=== PATIENT | male | born 1935 | race Caucasian/White ===

== ENCOUNTER 2019-03-28 16:02 | Emergency (ER) | payer OTHER ==
[~2019-03-28] VITALS: Ht 180.3 cm; Wt 97.5 kg
[~2019-03-28 16:02] MED LIST: ALBU90OI; AMLO10 PO; ASPI325 PO; ASPI81CH PO; ATEN25; ATOR40TA PO; CEPH500 PO; CLOP75 PO; COMBIVENT RESPIM4 GM; Celexa40 MG PO; HYDACE5 PO; LAMZIDT; LORA10; LOSA25; LOSA50 PO; Minipress1 MG PO; NIFE60ER; OMEP20ER; OMEPRAZOLE20 MG PO; QUET100 PO; SIMV40
[2019-03-28] MEDS ORDERED: ALBU90OI INH (16:22)
[2019-03-28] MEDS ORDERED: VITAMIN D32000 UNI1 PO (16:23)
[2019-03-28] MEDS ORDERED: ASPI81CH PO (16:23)
[2019-03-28] MEDS ORDERED: LEVSOD50 PO (16:25)
[2019-03-28] MEDS ORDERED: STRIVERDI RESPIM4 GM INH (16:27)
[2019-03-28] MEDS ORDERED: POTA10T PO (16:28)
[2019-03-28] MEDS ORDERED: Percocet 5-3251 EACH PO (18:44)
== END 2019-03-28 19:00 | disposition home or self-care (01) ==
LOC: ER 16:02
DX: S42.215A Unspecified nondisplaced fracture of surgical neck of left humerus, initial encounter for closed fracture (principal); S00.12XA Contusion of left eyelid and periocular area, initial encounter; S00.81XA Abrasion of other part of head, initial encounter; S80.211A Abrasion, right knee, initial encounter; I10 Essential (primary) hypertension; E78.00 Pure hypercholesterolemia, unspecified; K21.9 Gastro-esophageal reflux disease without esophagitis; Z87.891 Personal history of nicotine dependence; Z86.73 Personal history of transient ischemic attack (TIA), and cerebral infarction without residual deficits; Z88.8 Allergy status to other drugs, medicaments and biological substances; Z79.899 Other long term (current) drug therapy; Z79.82 Long term (current) use of aspirin; Z79.02 Long term (current) use of antithrombotics/antiplatelets; W18.39XA Other fall on same level, initial encounter
CPT/HCPCS: 70450; 73030; 90471; 90714; 93005; 93010; 99284-25

== ENCOUNTER 2019-04-01 10:44 | Emergency (ER) | payer OTHER ==
[~2019-04-01] VITALS: Ht 182.9 cm; Wt 90.7 kg
[~2019-04-01 10:44] MED LIST changes: +ALBU90OI INH; +LEVSOD50 PO; +POTA10T PO; +Percocet 5-3251 EACH PO; +STRIVERDI RESPIM4 GM INH; +VITAMIN D32000 UNI1 PO
[2019-04-01 11:21] LABS: BASOPHILS ABSOLUTE AUTO 0.05 K/mm3 (0.00-0.23); BASOPHILS PERCENT AUTO 1 % (0-2); EOSINOPHILS ABSOLUTE AUTO 0.43 K/mm3 (0.00-0.68); EOSINOPHILS PERCENT AUTO 6 % (0-6); Hematocrit 26.3 % (37.0-53.0); Hemoglobin 8.7 g/dL (13.5-17.5); IMMATURE GRAN ABSOLUTE AUTO 0.01 K/mm3 (0.00-0.10); IMMATURE GRAN PERCENT AUTO 0 % (0-1); LYMPHOCYTES ABSOLUTE AUTO 1.79 K/mm3 (0.84-5.20); LYMPHOCYTES PERCENT AUTO 26 % (21-46); MONOCYTES ABSOLUTE AUTO 0.62 K/mm3 (0.16-1.47); MONOCYTES PERCENT AUTO 9 % (4-13); Mean Corpuscular HGB 30.5 pg (26.0-34.0); Mean Corpuscular HGB Conc 33.1 g/dL (31.5-36.5); Mean Corpuscular Volume 92 fL (80-100); Mean Platelet Volume 10.5 fL (9.1-12.4); NEUTROPHILS PERCENT AUTO 58 % (41-73); Platelet Count 215 K/mm3 (150-400); RDW Coefficient Variation 14.3 % (11.7-14.2); RDW Standard Deviation 47.9 fL (35.1-46.3); Red Blood Cell Count 2.85 M/mm3 (4.30-5.90)
[2019-04-01 11:44] LABS: Alanine Aminotransfer (ALT/SGP 17 U/L (12-78); Albumin, Blood 3.1 g/dL (3.4-5.0); Albumin/Globulin Ratio 0.9 (0.8-1.8); Alk Phos 78 U/L (50-136); Anion Gap 9 mmol/L (6-16); Aspartate Aminotrans (AST/SGOT 28 U/L (12-37); Bilirubin, Total 0.9 mg/dL (0.1-1.0); Blood Urea Nitrogen 30 mg/dL (8-24); Bun/Creatinine Ratio 25.2 (12.0-20.0); CO2, Blood 24 mmol/L (21-32); Calcium, Blood 8.6 mg/dL (8.5-10.1); Chloride, Blood 109 mmol/L (98-108); Creatinine, Blood 1.19 mg/dL (0.60-1.20); Globulin, Blood 3.6 g/dL (2.2-4.0); Glomerular Filtration Rate >60 (60-); Glucose, Blood 114 mg/dL (70-99); Potassium, Blood 3.3 mmol/L (3.5-5.5); Sodium, Blood 142 mmol/L (136-145); Total Protein, Blood 6.7 g/dL (6.4-8.2)
[2019-04-01] MEDS ORDERED: Voltaren100 GM TOP (14:51)
[2019-04-01] MEDS ORDERED: Percocet 7.5-31 EACH PO (14:51)
== END 2019-04-01 15:45 | disposition home or self-care (01) ==
LOC: ER 10:44
PROVIDERS: Emergency Medicine
DX: S42.342A Displaced spiral fracture of shaft of humerus, left arm, initial encounter for closed fracture (principal); S42.202A Unspecified fracture of upper end of left humerus, initial encounter for closed fracture; S00.12XA Contusion of left eyelid and periocular area, initial encounter; I10 Essential (primary) hypertension; E03.9 Hypothyroidism, unspecified; Z86.73 Personal history of transient ischemic attack (TIA), and cerebral infarction without residual deficits; Z87.891 Personal history of nicotine dependence; Z88.8 Allergy status to other drugs, medicaments and biological substances; Z79.899 Other long term (current) drug therapy; Z79.02 Long term (current) use of antithrombotics/antiplatelets; Z79.82 Long term (current) use of aspirin; W17.89XA Other fall from one level to another, initial encounter
CPT/HCPCS: 36415; 71046; 71250; 73630; 80053; 85025; 96374; 96375; 99284-25; J2405; J3010

== ENCOUNTER 2019-04-04 00:47 | Inpatient (IN) | payer OTHER ==
[~2019-04-04] VITALS: Ht 180.3 cm; Wt 97.6 kg
[~2019-04-04 00:47] MED LIST changes: +Percocet 7.5-31 EACH PO; +Voltaren100 GM TOP
[2019-04-04 01:21] LABS: PCO2 Arterial 37.1 mmHg (35-45); pH Blood Arterial 7.45 (7.35-7.45)
[2019-04-04 01:42] LABS: BASOPHILS ABSOLUTE AUTO 0.04 K/mm3 (0.00-0.23); BASOPHILS PERCENT AUTO 1 % (0-2); EOSINOPHILS ABSOLUTE AUTO 0.22 K/mm3 (0.00-0.68); EOSINOPHILS PERCENT AUTO 3 % (0-6); Hematocrit 24.7 % (37.0-53.0); Hemoglobin 7.9 g/dL (13.5-17.5); IMMATURE GRAN ABSOLUTE AUTO 0.05 K/mm3 (0.00-0.10); IMMATURE GRAN PERCENT AUTO 1 % (0-1); LYMPHOCYTES ABSOLUTE AUTO 1.54 K/mm3 (0.84-5.20); LYMPHOCYTES PERCENT AUTO 21 % (21-46); MONOCYTES ABSOLUTE AUTO 0.58 K/mm3 (0.16-1.47); MONOCYTES PERCENT AUTO 8 % (4-13); Mean Corpuscular HGB 30.5 pg (26.0-34.0); Mean Corpuscular Volume 95 fL (80-100); Mean Platelet Volume 10.2 fL (9.1-12.4); NEUTROPHILS ABSOLUTE AUTO 5.03 K/mm3 (1.96-9.15); NEUTROPHILS PERCENT AUTO 68 % (41-73); Platelet Count 224 K/mm3 (150-400); RDW Coefficient Variation 15.4 % (11.7-14.2); RDW Standard Deviation 51.1 fL (35.1-46.3); Red Blood Cell Count 2.59 M/mm3 (4.30-5.90); White Blood Cell Count 7.46 K/mm3 (4.00-11.30)
[2019-04-04 01:48] LABS: Alanine Aminotransfer (ALT/SGP 18 U/L (12-78); Albumin, Blood 2.8 g/dL (3.4-5.0); Albumin/Globulin Ratio 0.9 (0.8-1.8); Alk Phos 63 U/L (50-136); Anion Gap 7 mmol/L (6-16); Aspartate Aminotrans (AST/SGOT 33 U/L (12-37); Bilirubin, Total 1.3 mg/dL (0.1-1.0); Blood Urea Nitrogen 28 mg/dL (8-24); Bun/Creatinine Ratio 23.3 (12.0-20.0); CO2, Blood 27 mmol/L (21-32); CPK Creatine Kinase 687 U/L (39-308); Calcium, Blood 8.3 mg/dL (8.5-10.1); Chloride, Blood 106 mmol/L (98-108); Globulin, Blood 3.1 g/dL (2.2-4.0); Glomerular Filtration Rate >60 (60-); Glucose, Blood 115 mg/dL (70-99); Potassium, Blood 3.4 mmol/L (3.5-5.5); Sodium, Blood 140 mmol/L (136-145); Total Protein, Blood 5.9 g/dL (6.4-8.2); Troponin I <0.015 ng/mL (0.000-0.040)
[2019-04-04 02:02] LABS: Creatine Kinase MB Index 0.4 (0.0-4.0)
--- NOTE | 2019-04-04 05:00 | NUR ---
PT ADMITTED TO ROOM ICU 12 FROM ED. REPORT RECEIVED. PT SLIDE TRANSFERRED TO BED. ARRIVES AT 0430. PT AWAKENS MOMENTARILY, AND THEN FALLS ASLEEP. ORDER OBTAINED FOR ADDITIONAL NARCAN. DID ADMINISTER 0.2 MG ONCE WHICH PT RESPONDED TO VERY WELL. PT AWAKENS AND IS ABLE TO ANSWER QUESTIONS APPROPRIATELY. PT'S SON AND PT'S GRANDSON IN ROOM. PT IN PROCESS OF POTASSIUM REPLACEMENT. WILL CONTINUE TO MONITOR PT.
--- NOTE | 2019-04-04 06:45 | NUR ---
PT HAS NOTED TO BE MORE SOMNULENT. ONCOMING RN TO BE TAKING OVER CARE SOON. WILL EVALUATE IF PT NEEDS TO RECEIVE ADDITONAL DOSE OF NARCAN. SON AND GRANDSON LEAVE FOR THE MORNING. OF NOTE: PT HAS BRUISING TO LEFT ARM THROUGHOUT FROM HIS FALL AT HOME. SLING REMAINS ON ARM. WILL MONITOR PT, AND WILL REPORT OFF TO ONCOMING RN.
[2019-04-04 09:28] LABS: BASOPHILS ABSOLUTE AUTO 0.04 K/mm3 (0.00-0.23); BASOPHILS PERCENT AUTO 1 % (0-2); EOSINOPHILS ABSOLUTE AUTO 0.13 K/mm3 (0.00-0.68); EOSINOPHILS PERCENT AUTO 2 % (0-6); Hematocrit 25.3 % (37.0-53.0); Hemoglobin 8.2 g/dL (13.5-17.5); IMMATURE GRAN ABSOLUTE AUTO 0.03 K/mm3 (0.00-0.10); IMMATURE GRAN PERCENT AUTO 0 % (0-1); LYMPHOCYTES ABSOLUTE AUTO 1.13 K/mm3 (0.84-5.20); LYMPHOCYTES PERCENT AUTO 14 % (21-46); MONOCYTES ABSOLUTE AUTO 0.66 K/mm3 (0.16-1.47); MONOCYTES PERCENT AUTO 8 % (4-13); Mean Corpuscular HGB 31.8 pg (26.0-34.0); Mean Corpuscular HGB Conc 32.4 g/dL (31.5-36.5); Mean Platelet Volume 9.6 fL (9.1-12.4); NEUTROPHILS ABSOLUTE AUTO 6.22 K/mm3 (1.96-9.15); NEUTROPHILS PERCENT AUTO 76 % (41-73); NRBC ABSOLUTE 0.02 K/mm3 (0.00-0.02); NRBC Auto 0.2 /100 WBC (0.0-0.2); Platelet Count 220 K/mm3 (150-400); RDW Coefficient Variation 15.6 % (11.7-14.2); RDW Standard Deviation 52.6 fL (35.1-46.3); Red Blood Cell Count 2.58 M/mm3 (4.30-5.90); White Blood Cell Count 8.21 K/mm3 (4.00-11.30)
[2019-04-04 09:41] LABS: Mean Corpuscular Volume 98 fL (80-100)
[2019-04-04 09:45] LABS: Albumin, Blood 2.7 g/dL (3.4-5.0); Albumin/Globulin Ratio 0.9 (0.8-1.8); Bilirubin, Total 1.3 mg/dL (0.1-1.0); Bun/Creatinine Ratio 24.6 (12.0-20.0); Calcium, Blood 8.2 mg/dL (8.5-10.1); Creatinine, Blood 1.26 mg/dL (0.60-1.20); Globulin, Blood 3.1 g/dL (2.2-4.0); Potassium, Blood 5.2 mmol/L (3.5-5.5); Total Protein, Blood 5.8 g/dL (6.4-8.2)
[2019-04-04 10:25] LABS: Adenovirus Not Detected (NOT DETECT)
[2019-04-04 10:26] LABS: Bordetella pertussis Not Detected (NOT DETECT); Chlamydophila pneumoniae Not Detected (NOT DETECT); Coronavirus 229E Not Detected (NOT DETECT); Coronavirus HKU1 Not Detected (NOT DETECT); Coronavirus NL63 Not Detected (NOT DETECT); Coronavirus OC43 Not Detected (NOT DETECT); Human Metapneumovirus Not Detected (NOT DETECT); Human Rhinovirus/Enterovirus Not Detected (NOT DETECT); Influenza A Not Detected (NOT DETECT); Influenza A/2009-H1 Not Detected (NOT DETECT); Influenza A/H1 Not Detected (NOT DETECT); Influenza A/H3 Not Detected (NOT DETECT); Influenza B Not Detected (NOT DETECT); Mycoplasma pneumoniae Not Detected (NOT DETECT); Parainfluenza Virus 1 Not Detected (NOT DETECT); Parainfluenza Virus 2 Not Detected (NOT DETECT); Parainfluenza Virus 3 Not Detected (NOT DETECT); Parainfluenza Virus 4 Not Detected (NOT DETECT); Respiratory Syncytial Virus Not Detected (NOT DETECT)
[2019-04-04 12:12] LABS: Source, Urine Clean Catch
[2019-04-04 12:17] LABS: Blood, Urine 5+ (Neg); Glucose Qualitative, Urine Neg (Neg); Ketones, Urine Neg (Neg); Leukocyte Esterase, Urine 1+ (Neg); Nitrite, Urine Neg (Neg); Protein, Urine 2+ (Neg); Specific Gravity, Urine 1.015 (1.003-1.022); Urobilinogen, Urine 1+ (Normal)
--- NOTE | 2019-04-04 12:20 | NUR ---
REASSESSMENT: PT HAS BEEN RESTING QUIETLY IN BED, SLEEPING UNLESS SPOKEN TO. HE IS ANSWERING MOST QUESTIONS APPROPRIATELY, ORIENTED TO WHERE HE IS AND HOW HE GOT INJURED. PT IS STILL DROWSY AND WAS FALLING ASLEEP WHEN NOT SPOKEN TOO SO ONE DOSE OF NARCAN GIVEN PER ORDERS BEFORE PT'S MEDICATIONS TO HELP HIM FULLY AWAKEN AND BE ABLE TO TAKE THE PILLS SAFELY. WITH THE NARCAN PT WAS MORE ALERT AND ABLE TO STAY AWAKE. HE TOOK THE PILLS WITHOUT ANY COUGHING OR SIGNS OF ASPIRATION. HIS LUNGS ARE COARSE, WEARING CPAP AT 35%. DROPS TO 87% ON RA WITH CPAP OFF. PT DENIES PAIN WHEN HE IS NOT MOVING. HE DID GRIMACE WITH TURNS. PT HAD NOT VOIDED SINCE ADMIT SO BLADDER SCAN DONE AND SHOWED 455ML OF URINE. PT UNABLE TO VOID SO ORDER RECEIVED FROM DR. CORDOBA FOR STRAIGHT CATH AND 450ML OF URINE RETURNED. PT'S L ARM IN SLING AND ELEVATED SLIGHTLY ITH PILLOW. CONTINUING TO MONITOR.
[2019-04-04 12:39] LABS: Bilirubin, Urine 1+ (Neg)
[2019-04-04 12:40] LABS: Appearance, Urine Clear (Clear); Color, Urine Yellow (P-Yellow); Red Blood Cells, Urine TNTC /hpf (0-2)
[2019-04-04 12:41] LABS: Bacteria Few /hpf; Hyaline Casts 0-2 /lpf (0-2); Squamous Epithelial Cells Rare /hpf (Few)
--- NOTE | 2019-04-04 15:18 | NUR ---
PT IS MORE DIFFICULT TO WAKE UP AGAIN AND IS HAVING PERIODS OF APNEA ON THE CPAP. NARCAN GIVEN PER ORDERS AND PT AWAKE TALKING WITH VISITOR IN HIS ROOM.
--- NOTE | 2019-04-04 16:30 | NUR ---
SHIFT SUMMARY: PT CONTINUES TO BE DROWSY, RESTING IN BED. HE SPENT MOST OF THE DAYON CPAP, CURRENTLY ON 3L/NC MAINTAINING SPO2 93%. LUNGS CONTINUE TO BE COARSE, BUT PT'S COUGH IS MUCH STRONGER THAN EARLIER THIS MORNING. HE APPEARS TO BE COUGHING UP SPUTUM, BUT IS SWALLOWING BEFORE HE IS ABLE TO COMPREHEND WE NEED A SPUTUM SAMPLE. HE GOT A DOSE OF NARCAN THIS AFTERNOON HE WAS GETTING MUCH DROWSIER AND DIFFICULT TO WAKE UP. AFTER THE NARCAN WAS GIVEN PT WAS MUCH MORE ALERT AND EASIER TO CONVERSE WITH. BRUISING AND SWELLING ON HIS FACE AND ARM ARE UNCHANGED FROM THIS MORNING. PT DENIES ANY PAIN. PT REQUIRED STRAIGHT CATH ONCE TODAY D/T TITRATION. PT'S SON CAME IN AND WAS UPDATED. CONTINUING TO MONITOR.
[2019-04-04 17:47] LABS: Hematocrit 23.7 % (37.0-53.0); Hemoglobin 7.5 g/dL (13.5-17.5)
--- NOTE | 2019-04-04 20:40 | NUR ---
CARE ASSUMED REPORT RECEIVED, CARE ASSUMED FROM NADIRA BENAVIDES. PT ASLEEP UPON NURSE ROUNDING, AROUSES WITH VERBAL STIMULI AND ABLE TO CARRY ON CONVERSATION. SEE ASESSMENT FOR FULL DETAILS. PT ABLE TO TAKE SMALL SIPS OF WATER WITHOUT COUGHING OR DIFFICULTY. EVENING MEDICATION ADMINISTERED. PT GIVEN CALL LIGHT AND BED ALARM IN PLACE. AGREES TO CALL FOR NEEDS.
--- NOTE | 2019-04-05 03:19 | NUR ---
SUMMARY SINCE PREVIOUS NOTE, VITALS REMAIN STABLE. SEE UPDATED ASSESSMENTS. PT HAS TOLERATED TURNS WELL. ENCOURAGED URINATION WITH EACH TURN AND PT DENIED NEED. HAS NOT USED CALL LIGHT OR SET OFF BED ALARM. REPORT TO NADIRA JARQUIN TO ASSUME CARE.
--- NOTE | 2019-04-05 03:30 | NUR ---
ASSUMED CARE OF PT. REPORT RECEIVED FROM NADIRA ENCISO. PT PRESENTS IN BED. NO DISTRESS. CURRENTLY SLEEPING. WILL REVIEW CHART AND PLAN OF CARE FOR THIS PT.
[2019-04-05 03:31] LABS: Hemoglobin 7.5 g/dL (13.5-17.5); Mean Corpuscular HGB 31.8 pg (26.0-34.0); Mean Corpuscular HGB Conc 32.6 g/dL (31.5-36.5); Mean Corpuscular Volume 98 fL (80-100); Mean Platelet Volume 9.9 fL (9.1-12.4); Platelet Count 238 K/mm3 (150-400); RDW Coefficient Variation 16.1 % (11.7-14.2); RDW Standard Deviation 53.3 fL (35.1-46.3); Red Blood Cell Count 2.36 M/mm3 (4.30-5.90); White Blood Cell Count 6.22 K/mm3 (4.00-11.30)
[2019-04-05 03:49] LABS: Albumin, Blood 2.3 g/dL (3.4-5.0); Anion Gap 6 mmol/L (6-16); Blood Urea Nitrogen 28 mg/dL (8-24); Bun/Creatinine Ratio 23.1 (12.0-20.0); CO2, Blood 26 mmol/L (21-32); CPK Creatine Kinase 423 U/L (39-308); Calcium, Blood 7.7 mg/dL (8.5-10.1); Chloride, Blood 110 mmol/L (98-108); Creatinine, Blood 1.21 mg/dL (0.60-1.20); Glomerular Filtration Rate >60 (60-); Glucose, Blood 96 mg/dL (70-99); Phosphorus, Blood 2.2 mg/dL (2.5-4.9); Potassium, Blood 3.7 mmol/L (3.5-5.5); Sodium, Blood 142 mmol/L (136-145)
[2019-04-05 05:27] LABS: Source, Urine Catheter
[2019-04-05 05:30] LABS: Bilirubin, Urine Neg (Neg); Blood, Urine 5+ (Neg); Glucose Qualitative, Urine Neg (Neg); Ketones, Urine 1+ (Neg); Leukocyte Esterase, Urine 1+ (Neg); Nitrite, Urine Neg (Neg); Protein, Urine 2+ (Neg); Specific Gravity, Urine 1.015 (1.003-1.022); Urobilinogen, Urine 1+ (Normal)
[2019-04-05 05:35] LABS: Color, Urine Yellow (P-Yellow)
[2019-04-05 05:37] LABS: Appearance, Urine Hazy (Clear); Bacteria Few /hpf; Red Blood Cells, Urine 25-50 /hpf (0-2); Squamous Epithelial Cells Rare /hpf (Few)
--- NOTE | 2019-04-05 06:08 | NUR ---
BLADDER SCAN DONE ON PT. 474ML PT WAS NOT ABLE TO VOID AT THIS TIME. PT STATES THAT HE DOES NOT FEEL ABLE TO URINATE. DID PLACE 16 IVORIAN MARTIN WITHOUT PROBLEMS. UA SENT. NO COMPLAINTS OF PAIN FROM LEFT ARM. REMAINS IN SLING. DISTAL CMS CHECKS REMAIN WNL. PT ALERT AND ORIENTED. PLEASANT AND COOPERATIVE WITH CARE AND ASSESSMENT. AFTER AM LABS, CALLED DR WATKINS WITH VALUES. ORDER RECEIVED FOR K-PHOS. WILL CONTINUE TO MONITOR PT, AND WILL REPORT OFF TO ONCOMING RN.
--- NOTE | 2019-04-05 07:28 | NUR ---
ASSUMED CARE REPORT FROM NADIRA JARQUIN. PT A&O. TEMP 99.1 HEAT TURNED DOWN. BRUISING AND ABRASION NOTED ON LEFT SIDE OF HIS FACE.
[2019-04-05 09:09] LABS: Hematocrit 23.7 % (37.0-53.0); Hemoglobin 7.6 g/dL (13.5-17.5)
--- NOTE | 2019-04-05 09:17 | NUR ---
MD VISIT DR. CORDOBA IN. WILL ADVANCE DIET AND CHANGE STATUS
--- NOTE | 2019-04-05 10:32 | NUR ---
PATIENT SLEEPING WHEN NOT DISTURBED. ORDERS FOR PT/OT PATIENT IS AFRAID OF FALLING AGAIN. 02 TO 2L NC
--- NOTE | 2019-04-05 10:50 | NUR ---
REPORT AND BEDSIDE ROUNDS WITH CHASIDY WADDELL. ASSUMED PT CARE. PLAN TO HAVE PT MOVED TO SURGICAL FLOOR PENDING ORDERS. PT ALERT AND ORIENTED TO SITUATION AND SELF UPON WALKING INTO ROOM. DENIES IMMEDIATE NEEDS. PT WITH SLING TO LEFT ARM FROM PREVIOUS FX. SEVERE BRUISING TO LEFT UPPER ARM.
--- NOTE | 2019-04-05 11:17 | NUR ---
REPORT GIVEN TO NADIRA RAINES. PATIENT IS NOW SURGICAL STATUS. NO TELE.
--- NOTE | 2019-04-05 11:48 | NUR ---
ROOM ASSIGNMENT RECEIVED. 224.
--- NOTE | 2019-04-05 12:35 | NUR ---
PHYSICAL THERAPY WORKING WITH PT.
--- NOTE | 2019-04-05 12:46 | NUR ---
ADAM WADDELL AWARE OF PT ADMIT. WILL CALL FOR REPORT.
--- NOTE | 2019-04-05 13:09 | NUR ---
JET TO MANUEL WADDELL ON SURGICAL FLOOR.
--- NOTE | 2019-04-05 13:25 | NUR ---
PT TO SURGICAL FLOOR VIA WC. ALL BELONGINGS GATHERED.
--- NOTE | 2019-04-05 13:27 | NUR ---
TRANSFER TO SURGICAL FLOOR PT TO SURGICAL FLOOR AT 1315 TODAY BY NADIRA BUSTOS VIA WHEELCHAIR. VSS WITH 93 SPO2 ON 3L. DENIES PAIN OR SOB. RT AND OT IN TO SEE PT AT THIS TIME.
--- NOTE | 2019-04-05 16:18 | NUR ---
SON IN TO SEE PT SON EXPRESSED FRUSTRATION, STATING FEELS LIKE "NO ONE IS LISTENING TO ME" CONCERNING PT. STATES FEELS PT IS DEHYDRATED AND NEEDS MORE IV FLUIDS. RELAYED MSG TO DR CORDOBA. DR CORDOBA INSTRUCTED TO ENCOURAGE FLUIDS SINCE PT IS NOW AWAKE AND ALERT. SON IS NOT SATISFIED W/THIS COURSE OF TX AND ASKED TO SPEAK TO NURSING FLARE STITCHER. NOTIFIED MAU, NURSING FLARE STITCHER WHO IS NOW IN TO SEE PT AND SON. LM FOR DR CORDOBA ASKING HER TO COME SPEAK W/PT AND SON.
[2019-04-05 16:35] LABS: Hemoglobin 8.1 g/dL (13.5-17.5)
--- NOTE | 2019-04-05 17:37 | NUR ---
DR. CORDOBA AT BEDSIDE CONVERSING WITH PT'S SON.
--- NOTE | 2019-04-05 17:54 | NUR ---
SHIFT SUMMARY PT A& O. NEEDS TO BE PROMPTED TO TAKE FLUIDS, REPORTS COLD FLUIDS HURT HIS CHEST, PROVIDED ROOM TEMPERATURE FLUIDS AND ENCOURAGED TO TAKE. DR. CORDOBA IN TO DISCUSS PATIENT'S CARE WITH SON, ORDERS OBTAINED. BED ALARM ON, CALL LIGHT WITHIN REACH, AND SON AT BEDSIDE. MARTIN IS PATENT AND DRAINING WITH ALEKSANDRA COLORED URINE. H/H IMPROVED THIS EVENING, SEE LAB VALUES.
--- NOTE | 2019-04-05 22:18 | NUR ---
IV: PT IV LEAKING X2 AT START OF SHIFT. DC'D WNL. PT STATES THAT HE DOES NOT WANT ANOTHER IV START AND THAT HE PLANS ON GOING TO [facility] TO BE WITH HIS . EDUCATED R/T ANTIBIOTICS A NEED FOR TREATMENT FOR PNEMONIA. PT GRANDSON AT BEDSIDE AND AWARE THAT PT DOES NOT WANT AN IV. PA CALLED BECAUSE PT IS REQUESTING ORAL ABX. PS STATES THAT HE "DOESN'T KNOW THE PATIENT AND CAN'T MAKE THAT CALL." MD NOTE FROM TODAY STATES THAT ORAL ABX MAY BE ACCEPTABLE BUT PA DOES NOT WANT TO CHANGE THEM STILL. STATES " JUST TELL HIM WHY HE NEEDS THEM AND CHART HE REFUSED IF HE DOES NOT WANT AN IV."
[2019-04-06 04:07] LABS: Hematocrit 23.3 % (37.0-53.0); Hemoglobin 7.6 g/dL (13.5-17.5); Mean Corpuscular HGB 31.1 pg (26.0-34.0); Mean Corpuscular HGB Conc 32.6 g/dL (31.5-36.5); Mean Corpuscular Volume 96 fL (80-100); Mean Platelet Volume 9.7 fL (9.1-12.4); Platelet Count 263 K/mm3 (150-400); RDW Coefficient Variation 16.3 % (11.7-14.2); RDW Standard Deviation 53.4 fL (35.1-46.3); Red Blood Cell Count 2.44 M/mm3 (4.30-5.90); White Blood Cell Count 6.39 K/mm3 (4.00-11.30)
[2019-04-06 04:25] LABS: Albumin, Blood 2.2 g/dL (3.4-5.0); Anion Gap 6 mmol/L (6-16); Blood Urea Nitrogen 25 mg/dL (8-24); Bun/Creatinine Ratio 24.8 (12.0-20.0); CO2, Blood 26 mmol/L (21-32); Calcium, Blood 7.7 mg/dL (8.5-10.1); Chloride, Blood 109 mmol/L (98-108); Creatinine, Blood 1.01 mg/dL (0.60-1.20); Glomerular Filtration Rate >60 (60-); Glucose, Blood 107 mg/dL (70-99); Phosphorus, Blood 2.3 mg/dL (2.5-4.9); Potassium, Blood 3.8 mmol/L (3.5-5.5); Sodium, Blood 141 mmol/L (136-145)
--- NOTE | 2019-04-06 08:57 | NUR ---
DR CORDOBA HERE TO SEE PT. REPORTS TO Virgie/Odell MARTIN AND INSTRUCT PT ON I/S. WILL Virgie/Odell MARTIN. PT INSTRUCTED ON I/S.
--- NOTE | 2019-04-06 13:11 | NUR ---
DISCUSSED PT'S STATUS REGARDING NO IV. SEE ORDERS.
--- NOTE | 2019-04-06 15:27 | NUR ---
Initial Visit: Palliative Care Consult for Advanced Care Planning. Pt is A&Ox2. Unable to give appropriate place and reason for hospital stay. Pt answer appropriately for current year. Pt denies pain at this time. He reports mild but managed dyspnea. Pt is also WILTON. Pt's son Sarthak (DIVYA) is at bedside. Engaged in therapeutic discussion regarding advanced care planning. Pt lives with Sarthak and is Pt's primary caregiver. Sarthak reports being the primary caregiver for his who suffers from significant medical issues as well. Pt reports having a poor quality of life and isn't able to enjoy the things he used to do such as fishing and hunting. He reports not wanting any heroic measures to keep him alive. Educated Sarthak on the importance of planning for Pt's future as age and disease process takes its coarse. Discussed the possibility of needing caregivers in the home to asist with care. Discussed the options for paying out of pocket or appying for the medicaid process. Discussed code status and AD/POLST. Sarthak reports AD has already been completed and is in Pt's chart. Discussed completing POLST and educated on life sustaining measures including risk factors. Sarthak will consider completing POLST at a later time. After discussion regarding statements made by Pt Sarthak has decided to make Pt a limited code. Sarthak states "I don't want to completely give up on him" but is willing to consider Pt's wishes. Pt will be limited treatment with shock and medications only. No chest compressions or intubation. Sarthak reports no other concerns at this time. Called and spoke with Dr Joy. Changed Pt's code status to Limited Code with treatments of Shock and Medications only per V/O from Dr Joy. Palliative Care will remain available.
--- NOTE | 2019-04-06 16:30 | NUR ---
PT VOIDED. BLADDER SCAN 7-14ML. PT REPORTED TO HAVING FEELING OF HEARTBURN. PT CONT TO BE 91-92% ON 2LO2NC. PT REPORTS USING I/S THAT IS IN ROOM. PT COUGHING UP THICK SPUTUM. UPDATED ON PT. PT HAS TAB ALARM IN PLACE PT FAMILY REPORTED TO BE LEAVING.
--- NOTE | 2019-04-06 17:37 | NUR ---
SHIFT SUMMARY PT EATING AND DRINKING. PT VOIDED EARLIER TODAY. PT WORKED WITH THERAPY EARLIER TODAY AND HAS BEEN UP TO CHAIR. PT BEEN ASSISTED WITH ADL'S PRN. PALLIATIVE CARE IN TO SEE PT AND FAMILY TODAY. FAMILY IN ROOM MOST OF DAY. PT ALERT AND ORIENTED AT THIS TIME. PT HAS TAB ALARM IN PLACE. PT HAS SLING IN PLACE TO LUE.
[2019-04-07 04:32] LABS: Hematocrit 24.5 % (37.0-53.0); Hemoglobin 7.9 g/dL (13.5-17.5); Mean Corpuscular HGB 31.7 pg (26.0-34.0); Mean Corpuscular HGB Conc 32.2 g/dL (31.5-36.5); Mean Corpuscular Volume 98 fL (80-100); Mean Platelet Volume 9.6 fL (9.1-12.4); Platelet Count 283 K/mm3 (150-400); RDW Coefficient Variation 16.8 % (11.7-14.2); RDW Standard Deviation 56.2 fL (35.1-46.3); Red Blood Cell Count 2.49 M/mm3 (4.30-5.90); White Blood Cell Count 5.97 K/mm3 (4.00-11.30)
[2019-04-07 04:50] LABS: Albumin, Blood 2.1 g/dL (3.4-5.0); Anion Gap 6 mmol/L (6-16); Blood Urea Nitrogen 26 mg/dL (8-24); Bun/Creatinine Ratio 29.4 (12.0-20.0); CO2, Blood 27 mmol/L (21-32); Calcium, Blood 7.9 mg/dL (8.5-10.1); Chloride, Blood 108 mmol/L (98-108); Creatinine, Blood 0.88 mg/dL (0.60-1.20); Glomerular Filtration Rate >60 (60-); Glucose, Blood 112 mg/dL (70-99); Phosphorus, Blood 2.9 mg/dL (2.5-4.9); Potassium, Blood 3.7 mmol/L (3.5-5.5); Sodium, Blood 141 mmol/L (136-145)
--- NOTE | 2019-04-07 06:12 | NUR ---
PT STABLE BUT HYPERTENSIVE. SATS STABLE ON 2-3 L. PT SWITCHED BACK AND FORTH FROM NASAL CANNULA TO CPAP. PT HAS PRODUCTIVE MOIST COUGH. PT SLEPT WELL T/O THE SHIFT. PT HAD SOFT BM WITH SMALL AMT CLAUDETTE RED BLOOD. PT VOIDED X1. UP TO COMMODE WITH 2 PERSON ASSIST. ATTENDS ON FOR COMFORT. DENIES PAIN T/O SHOFT. SLING IN PLACE TO LEFT ARM CIRC AND SENSATION WNL. POOR PO INTAKE. BED ALARM ON FOR SAFETY.
[2019-04-07] MEDS ORDERED: AMOX875 PO (13:47)
[2019-04-07] MEDS ORDERED: GAVILAX17 GM PO (13:48)
[2019-04-07] MEDS ORDERED: Vsl#3 Capsule1 EACH PO (13:48)
--- NOTE | 2019-04-07 15:00 | NUR ---
DISCHARGE SUMMARY PT A&OX4, VSS ON 2L NC W/PORTABLE TANK FROM [facility], LEFT FLOOR VIA WC WITH APPLICATION RELEASE MANAGER, WITH ALL PERSONAL POSSESSIONS, TO GO HOME WITH SON. DC INSTRUCTIONS PROVIDED; PT REP UNDERSTANDING THOSE INSTRUCTIONS: WILL STORE PERSON SCRIPTS FROM [employer], PLAN TO GET HEMIWALKER, SON WILL CALL [facility] WHEN HE GETS HOME TO ARRANGE SET UP OF HOME O2, WILL FU WITH ORTHOPEDIC SG.
== END 2019-04-07 15:00 | disposition home health service (06) | DRG 177 ==
LOC: ER 00:47 → ICUW 04:32 → SURS 04:32 → ICUW 04:35 → SURS 04-05 13:10
PROVIDERS: Emergency Medicine; Internal Medicine; ADMIT Internal Medicine
DX: J69.0 Pneumonitis due to inhalation of food and vomit (principal); J96.01 Acute respiratory failure with hypoxia; G92 Toxic encephalopathy; S22.089A Unspecified fracture of T11-T12 vertebra, initial encounter for closed fracture; S42.302A Unspecified fracture of shaft of humerus, left arm, initial encounter for closed fracture; M62.82 Rhabdomyolysis; T40.601A Poisoning by unspecified narcotics, accidental (unintentional), initial encounter; Z86.73 Personal history of transient ischemic attack (TIA), and cerebral infarction without residual deficits; Z79.82 Long term (current) use of aspirin; K21.9 Gastro-esophageal reflux disease without esophagitis; E78.00 Pure hypercholesterolemia, unspecified; I10 Essential (primary) hypertension; E03.9 Hypothyroidism, unspecified; E87.6 Hypokalemia; Y92.9 Unspecified place or not applicable; J44.9 Chronic obstructive pulmonary disease, unspecified; W19.XXXA Unspecified fall, initial encounter; M81.0 Age-related osteoporosis without current pathological fracture; R33.9 Retention of urine, unspecified; N40.1 Benign prostatic hyperplasia with lower urinary tract symptoms
CPT/HCPCS: 0099U; 36415; 36600; 51701; 51703; 71045; 71046; 71250; 73630; 80053; 80069; 81001; 82550; 82553; 82803; 84484; 85014; 85018; 85025; 85027; 87070; 87077; 87086; 87147; 87186; 87205; 93005; 93010; 94640; 94660; 94761; 94762; 96365; 96375; 97110; 97116; 97162; 97166; 97530; 97535; 99285-25; C9113; J1650; J2310; J2405; J2543; J3480; J7030; J7050; J7060

== ENCOUNTER 2019-07-12 23:21 | Inpatient (IN) | payer OTHER, MEDICARE ==
[~2019-07-12] VITALS: Ht 180.3 cm; Wt 87.8 kg
[~2019-07-12 23:21] MED LIST changes: +AMOX875 PO; +GAVILAX17 GM PO; +Vsl#3 Capsule1 EACH PO
[2019-07-13 00:18] LABS: BASOPHILS ABSOLUTE AUTO 0.05 K/mm3 (0.00-0.23); BASOPHILS PERCENT AUTO 1 % (0-2); EOSINOPHILS ABSOLUTE AUTO 0.38 K/mm3 (0.00-0.68); EOSINOPHILS PERCENT AUTO 4 % (0-6); Hematocrit 36.3 % (37.0-53.0); Hemoglobin 11.3 g/dL (13.5-17.5); IMMATURE GRAN ABSOLUTE AUTO 0.03 K/mm3 (0.00-0.10); IMMATURE GRAN PERCENT AUTO 0 % (0-1); LYMPHOCYTES ABSOLUTE AUTO 1.02 K/mm3 (0.84-5.20); LYMPHOCYTES PERCENT AUTO 11 % (21-46); MONOCYTES ABSOLUTE AUTO 0.55 K/mm3 (0.16-1.47); MONOCYTES PERCENT AUTO 6 % (4-13); Mean Corpuscular HGB 28.7 pg (26.0-34.0); Mean Corpuscular HGB Conc 31.1 g/dL (31.5-36.5); Mean Corpuscular Volume 92 fL (80-100); Mean Platelet Volume 10.2 fL (9.1-12.4); NEUTROPHILS ABSOLUTE AUTO 7.16 K/mm3 (1.96-9.15); NEUTROPHILS PERCENT AUTO 78 % (41-73); Platelet Count 220 K/mm3 (150-400); RDW Coefficient Variation 13.5 % (11.7-14.2); RDW Standard Deviation 45.8 fL (35.1-46.3); Red Blood Cell Count 3.94 M/mm3 (4.30-5.90); White Blood Cell Count 9.19 K/mm3 (4.00-11.30)
[2019-07-13 00:20] LABS: Calcium, Ionized (POC) 1.11 mmol/L (1.10-1.46); Chloride (POC) 104 mmol/L (98-108); Glucose (ISTAT POC) 96 mg/dL (70-99); Hemoglobin (POC) 12.2 g/dL (13.5-17.5); Potassium (POC) 3.3 mmol/L (3.5-5.5); Sodium (POC) 137 mmol/L (135-148); Total CO2 (POC) 25 mmol/L (21-32)
[2019-07-13 00:33] LABS: International Normalized Ratio 1.05; Prothrombin Time Results 11.1 Sec (9.7-11.5)
[2019-07-13 00:37] LABS: Alanine Aminotransfer (ALT/SGP 22 U/L (12-78); Albumin, Blood 3.3 g/dL (3.4-5.0); Albumin/Globulin Ratio 0.8 (0.8-1.8); Alk Phos 137 U/L (50-136); Anion Gap 9 mmol/L (6-16); Aspartate Aminotrans (AST/SGOT 31 U/L (12-37); Bilirubin, Total 0.6 mg/dL (0.1-1.0); Blood Urea Nitrogen 13 mg/dL (8-24); Bun/Creatinine Ratio 13.5 (12.0-20.0); CO2, Blood 24 mmol/L (21-32); Calcium, Blood 8.8 mg/dL (8.5-10.1); Chloride, Blood 106 mmol/L (98-108); Creatinine, Blood 0.96 mg/dL (0.60-1.20); Globulin, Blood 3.9 g/dL (2.2-4.0); Glomerular Filtration Rate >60 (60-); Glucose, Blood 92 mg/dL (70-99); Potassium, Blood 3.4 mmol/L (3.5-5.5); Sodium, Blood 139 mmol/L (136-145); Total Protein, Blood 7.2 g/dL (6.4-8.2)
--- NOTE | 2019-07-13 06:47 | NUR ---
Arrived from er with a fever which has not abated, treated with tylenol + cooled room, semi successfully treated for back and neck pain, rm air, ns running at 75ml/h with no s/sx of infection or infiltration, cooperative with staff, swelling remains on L face, no problem swallowing, gave medication with glory PETERSON, family says he figets alot when in pain, on lasix, asked for a urinal but arrived to late, cleaned up pt and bed
--- NOTE | 2019-07-13 07:07 | NUR ---
hospitalist called back and said to treat the fever with more tylenol, told day shift staff and gave 650 more tylenol for a fever of 102.2 oral, pt took medication with , swallowed without difficulty, reported to day staff
--- NOTE | 2019-07-13 07:30 | NUR ---
ASSUMED CARE OF PATIENT; SEE ASSESSMENT CHARTING FOR DETAILS. PATIENT SLEEPY BUT ROUSES EASILY; DENIES ACUTE PAIN TO L FACE (INFECTION/SWELLING); ONLY MINOR PAIN TO BACK. PATIENT PLEASANT AND COOPERATIVE; AWARE OF PERSON/PLACE BUT NOT SPECIFIC RE: DATE/YEAR ETC. VOIDED 175 ML OF ALEKSANDRA URINE. NPO EXEPT PO MEDS (CRUSHED ETC) WITH APPLESAUCE. IV FLUID OF NS INFUSING AT 75ML/HR. MONITOR REMAINS A. FIB WITH RATE REASONABLE. OVERALL STATUS IMPROVING. TEMPERATURE DOWN TO 100.4 SINCE 2ND DOSE OF TYLENOL GIVEN.
[2019-07-13 08:18] LABS: Hematocrit 36.7 % (37.0-53.0); Hemoglobin 12.1 g/dL (13.5-17.5); Mean Corpuscular HGB 29.5 pg (26.0-34.0); Mean Corpuscular Volume 90 fL (80-100); Mean Platelet Volume 10.3 fL (9.1-12.4); Platelet Count 221 K/mm3 (150-400); RDW Coefficient Variation 13.9 % (11.7-14.2); RDW Standard Deviation 45.1 fL (35.1-46.3); White Blood Cell Count 14.34 K/mm3 (4.00-11.30)
[2019-07-13 08:22] LABS: Alanine Aminotransfer (ALT/SGP 21 U/L (12-78); Albumin, Blood 3.1 g/dL (3.4-5.0); Albumin/Globulin Ratio 0.8 (0.8-1.8); Alk Phos 124 U/L (50-136); Anion Gap 9 mmol/L (6-16); Aspartate Aminotrans (AST/SGOT 31 U/L (12-37); Bilirubin, Total 0.7 mg/dL (0.1-1.0); Blood Urea Nitrogen 13 mg/dL (8-24); Bun/Creatinine Ratio 12.1 (12.0-20.0); CO2, Blood 23 mmol/L (21-32); Calcium, Blood 8.1 mg/dL (8.5-10.1); Chloride, Blood 105 mmol/L (98-108); Creatinine, Blood 1.07 mg/dL (0.60-1.20); Globulin, Blood 3.8 g/dL (2.2-4.0); Glomerular Filtration Rate >60 (60-); Glucose, Blood 111 mg/dL (70-99); Potassium, Blood 3.6 mmol/L (3.5-5.5); Sodium, Blood 137 mmol/L (136-145); Total Protein, Blood 6.9 g/dL (6.4-8.2)
--- NOTE | 2019-07-13 10:50 | NUR ---
DR. GRACIA S. HERE; TO CHANGE PATIENT TO MED. FLOOR STATUS WITHOUT TELEMETRY.
--- NOTE | 2019-07-13 12:30 | NUR ---
DR. SAMIA Domínguez ORDERED ENT REFERRAL; INFORMED PHYSICIAN ENT UNAVAILABLE TO MONDAY (DR. HILARIO); V/U.
--- NOTE | 2019-07-13 13:00 | NUR ---
ASSISTED WITH LUNCH (FULL LIQUIDS) BY EDUCATION REVIEWER; ASP. PRECAUTIONS FOLLOWED. NO DIFFICULTIES NOTED. SON IN FOR VISIT; TO RETURN LATER.
--- NOTE | 2019-07-13 13:51 | NUR ---
REPORT GIVEN TO MED. SANTOS RN; TRANSFERRED TO ROOM 342 VIA BED.
--- NOTE | 2019-07-13 14:15 | NUR ---
TRANSFERRED TO ROOM 342 VIA BED; BELONGINGS AND CHART WITH PATIET; ACCOMPANIED BY AKI PEACOCK.
--- NOTE | 2019-07-13 14:26 | NUR ---
PT WAS TRANSFERRED FROM PCU 8. HE ARRIVED TO ROOM WITH X 2 ASSIST. HE IS ALERT BUT SELDOVIA. PT IS PLEASANT AND COOPERATIVE WITH HIS CARE. HE WAS ORIENTED TO HIS ROOM, NURSING STAFF AND HIS CALL LIGHT. PT IS RESTING IN BED WITH CALL LIGHT IN REACH.
--- NOTE | 2019-07-13 15:59 | NUR ---
SHIFT SUMMARY: PT HAS BEEN A/O X 3 SINCE HIS ARRIVAL. IT WAS OBSERVED THAT HE WAS GRIMACING AND WHEN ASKED HE SAID HE WAS IN PAIN. TYLENOL WAS GIVEN ORDERED. PT CONTINUES WITH SWELLING TO THE LEFT SIDE OF HIS FACE. HE HAS BEEN INC OF URINE SINCE HIS ARRIVAL TO THE UNIT. IV FLUIDS/ABO INFUSED ORDERED. PT IS ABLE TO MAKE HIS NEEDS KNOWN AND IS RESTING IN BED WITH HIS CALL LIGHT IN REACH.
--- NOTE | 2019-07-14 05:06 | NUR ---
SHIFT SUMMARY PCU TRANSFER TO MED FLOOR, DX: PAROTITIS LEFT CHEEK. PLAN IS FOR IV ANTIBIOTICS, IV STEROIDS, ELECTROLYTE CORRECTION IF INDICATED BY LABS. HOH. FARIA. LIVES WITH SON. FINISHED IV NS INFUSION, THEN SALINE LOCKED THIS SHIFT. ENT CONSULT CALLED BY PCU. NOTED BRUISING ON HIPS. FULL LIQUID DIET. PT CONFUSED THROUGHOUT SHIFT: NOT ORIENTED TO PLACE, SITUATION, TIME/DATE, OR NURSING STAFF, DISORIENTED, ATTEMPTED TO EXIT BED REGULARLY. MEDS ADMINISTERED WHOLE IN PUDDING. HX: CVA. BED ALARM IS ON.
[2019-07-14 05:14] LABS: BASOPHILS ABSOLUTE AUTO 0.03 K/mm3 (0.00-0.23); BASOPHILS PERCENT AUTO 0 % (0-2); EOSINOPHILS PERCENT AUTO 0 % (0-6); Hematocrit 34.5 % (37.0-53.0); Hemoglobin 11.3 g/dL (13.5-17.5); IMMATURE GRAN ABSOLUTE AUTO 0.14 K/mm3 (0.00-0.10); IMMATURE GRAN PERCENT AUTO 1 % (0-1); LYMPHOCYTES ABSOLUTE AUTO 0.76 K/mm3 (0.84-5.20); LYMPHOCYTES PERCENT AUTO 4 % (21-46); MONOCYTES ABSOLUTE AUTO 0.52 K/mm3 (0.16-1.47); MONOCYTES PERCENT AUTO 3 % (4-13); Mean Corpuscular HGB 29.1 pg (26.0-34.0); Mean Corpuscular HGB Conc 32.8 g/dL (31.5-36.5); Mean Corpuscular Volume 89 fL (80-100); Mean Platelet Volume 10.8 fL (9.1-12.4); NEUTROPHILS ABSOLUTE AUTO 16.93 K/mm3 (1.96-9.15); NEUTROPHILS PERCENT AUTO 92 % (41-73); Platelet Count 207 K/mm3 (150-400); RDW Coefficient Variation 14.1 % (11.7-14.2); RDW Standard Deviation 45.3 fL (35.1-46.3); Red Blood Cell Count 3.88 M/mm3 (4.30-5.90); White Blood Cell Count 18.38 K/mm3 (4.00-11.30)
--- NOTE | 2019-07-14 06:23 | NUR ---
JENNIFER RESTRAINT APPLIED PT CONFUSED, A & O TO SELF ONLY. ATTEMPTING FREQUENTLY TO EXIT BED & HALLUCINATING. PT IS UNABLE TO BE REDIRECTED OR DISTRACTED. ALTERNATIVES TO RESTRAINT TRIED THROUGHOUT PM SHIFT BY VARIOUS NURSING STAFF, ALL ALTERNATIVES FAILED. HOSPITALIST APPROVED ORDER FOR NON-VIOLENT RESTRAINT @ 0603 HRS ON 07/14/19. JENNIFER VEST IN PLACE ON THIS PT.
--- NOTE | 2019-07-14 10:49 | NUR ---
PT WAS ALERT AND ORIENTED TO HIMSELF THIS MORNING BUT VERY CONFUSED. HE WAS CONSTANTLY ATTEMPTING TO CLIMB OUT OF BED EVEN WITH JENNIFER IN PLACE AND RE-DIRECTION AND DISTRACTION . PT WAS RE-ORIENTED TO PLACE AND STAFF BUT REMAINED CONFUSED. PT WAS ABLE TO TAKE HIS MORNING MEDS WITH NO ISSUE AND AFTER SOMETHING TO DRINK AND RE-POSITIONING CALEMED DOWN ENOUGH TO WATCH TV UNTIL HE WAS TRANSFERRED TO ROOM 344. REPORT WAS GIVEN TO RECEIVING RN. ALL BELONINGS SENT WITH PT. PT WAS STABLE UPON TRANSFER.
--- NOTE | 2019-07-14 17:27 | NUR ---
SUMMARY PT RESTING QUIETLY IN BED WATCHING TV, PT HAS BEEN COOPERATIVE WITH CARE, OCC CONFUSED, JENNIFER VEST ON FOR SAFETY, PT'S SON IN TO VISIT THIS EVENING, NO COMPLAINTS, VSS, NO ACUTE CHANGES, WILL CONT TO MONITOR
--- NOTE | 2019-07-14 22:19 | NUR ---
BEGINNING SHIFT SUMMARY ASSUMED CARE OF PT AT 1900. PT WAS TRANSFERED TO THE BACK LEWIS DUE TO BEING COMBATIVE. PT IS ALERT AND ORIENTED TO SELF. FAMILY REPORTED PT BASELINE IS ORIENTED. PT HAS A PACEMAKER, HEART SOUNDS IRREGULAR, LUNG SOUNDS COULD NOT BE ASSESSED DUE TO PT REFUSAL. PT HAS HAD RECENT FALLS AND IT IS PAINFUL FOR THE PT TO MOVE, PT STATES THAT HE DOESNT NEED PAIN MEDICATIONS AT THIS TIME. PT HAS A SWELLING MOLE/SCAB ON HIS R SHOULDER THAT IS PAINFUL TO TOUCH AND A PRESSURE ULCER ON HIS COCCYX, BOTH COVERED IN MEPILEX, PICTURES TAKEN. PT HAS ONLY BEEN COMBATIVE WHEN LOVENOX INJECTION WAS GIVEN, PT IS CALM AND COOPERATIVE AT THIS TIME. PT IS CURRENTLY SLEEPING, CALL LIGHT IN REACH, BED IN LOWEST POSITION, BED ALARM ON, WILL CONTINUE TO MONITOR.
--- NOTE | 2019-07-14 22:32 | NUR ---
BEGINNING SHIFT SUMMARY ASSUMED CARE OF PT AT 1900. PT WAS LYING IN BED WATCHING TV. PT IS ALERT AND ORIENTED WITH TIMES OF CONFUSION. PT SPEECH IS GARBLED WITH MOMENTS OF CLEARITY. PT L NECK IS HAS A SWOLLEN LUMP WHICH IS FIRM TO TOUCH, PT STATES HE IS FEELING BETTER AND THE LUMB IS GETTING SMALLER. PT SWALLOWED PILLS WHOLE WITH WATER AND A STRAW, PT COUGHED VIGEROUSLY AFTERWARDS. HEART SOUNDS IRREGULAR, FINE CRACKLES AT THE BASES OF LUNGS, PT ON 2L O2, PT STATES HE USES CPAP AND 3L NASAL CANNULA AT HOME. PT HAS SMALL LUMPS UNDERNEATH HIS SKIN, PT STATES HE HAS HAD THOSE SINCE HE COULD REMEMBER. PT STATES HIS L ARM AND SHOULDER ARE BROKEN FROM A FALL THAT HE HAD, PT CANNOT MOVE LE ARM. PT USED BEDSIDE CAMMODE, PT IS A 3P ASSIST AND CANNOT STAND HIMSELF, BUT ONCE STAND CAN SHUFFLE HIS FEET. PT IS BOTH CONTINENT AND INCONTINENT AT TIMES. PT HAS NOT TRIED TO GET OUT OF BED BUT ALSO DOES NOT CALL. PT IS CURRENTLY SLEEPING, CALL LIGHT IN REACH, BED IN LOWEST POSTION, BED ALARM ON, WILL CONTINUE TO MONITOR.
--- NOTE | 2019-07-15 01:14 | NUR ---
HOSPITALIST CALL CALLED THAT HOSPITALIST ABOUT THE PTS CONTINUED AGITATION. PT WAS THREATENING STAFF AND TRYING TO GET OUT OF BED. HOSPITALIST PERSCRIBED HALDOL. PT IS STILL AGITATED AFTER HALDOL BUT IS NOT TRYING TO GET OUT OF BED.
--- NOTE | 2019-07-15 04:39 | NUR ---
END SHIFT SUMMARY PT CALMED DOWN AFTER GIVEN TORDOL FOR PAIN. PT CONTINUES TO BE AGITATED, EVEN IN HIS SLEEP, PT PULLS AT THE SHEETS AND MOVES HIS LEGS IN BED. PT IS CURRENTLY, CALL LIGHT IN REACH, BED IN LOWEST POSTION, BED ALARM ON, WILL CONTINUE TO MONITOR UNTIL DAYSHIFT NURSE ARRIVES.
[2019-07-15 04:49] LABS: BASOPHILS ABSOLUTE AUTO 0.01 K/mm3 (0.00-0.23); BASOPHILS PERCENT AUTO 0 % (0-2); EOSINOPHILS PERCENT AUTO 0 % (0-6); Hematocrit 30.2 % (37.0-53.0); Hemoglobin 10.1 g/dL (13.5-17.5); IMMATURE GRAN ABSOLUTE AUTO 0.17 K/mm3 (0.00-0.10); IMMATURE GRAN PERCENT AUTO 1 % (0-1); LYMPHOCYTES ABSOLUTE AUTO 0.58 K/mm3 (0.84-5.20); LYMPHOCYTES PERCENT AUTO 4 % (21-46); MONOCYTES ABSOLUTE AUTO 0.38 K/mm3 (0.16-1.47); MONOCYTES PERCENT AUTO 3 % (4-13); Mean Corpuscular HGB 29.1 pg (26.0-34.0); Mean Corpuscular HGB Conc 33.4 g/dL (31.5-36.5); Mean Corpuscular Volume 87 fL (80-100); Mean Platelet Volume 10.9 fL (9.1-12.4); NEUTROPHILS ABSOLUTE AUTO 13.14 K/mm3 (1.96-9.15); NEUTROPHILS PERCENT AUTO 92 % (41-73); Platelet Count 202 K/mm3 (150-400); RDW Coefficient Variation 14.4 % (11.7-14.2); RDW Standard Deviation 45.3 fL (35.1-46.3); Red Blood Cell Count 3.47 M/mm3 (4.30-5.90); White Blood Cell Count 14.28 K/mm3 (4.00-11.30)
--- NOTE | 2019-07-15 11:00 | NUR ---
1145 PT LETHARGIC, SLEEPING MOST OF SHIFT, REFUSED BREAKFAST. JENNIFER RESTRAINT D/C'D.
--- NOTE | 2019-07-15 17:53 | NUR ---
SHIFT SUMMARY. PT LETHARGIC/SLEEPING MOST OF SHIFT, WITH INCONTINENCE OF URINE. PT BECAME MORE ALERT WITH ANSWERING QUESTIONS APPROPRIATELY THIS EVENING, ONE CONTINENT EPISODE. PT REPORTED PAIN TO L FACE ONCE THIS SHIFT, PAIN MANAGED WELL WITH CURRENT ORDERS. NO N/V OR SOB. CONTINUES WITH 2L O2 NC, PT OFTEN PLACES CANNULA IN MOUTH. PT WITH POOR PO INTAKE MOST OF THIS SHIFT DUE TO LETHARGY. PT ENCOURAGED TO TAKE ADEQUATE FOOD AND FLUID INTAKE WHILE AWAKE THIS EVENING, PT REQUIRES ASSISTANCE WITH FEEDING. SON IN TO VISIST THIS AFTERNOON. NO OTHER CHANGES OR CONCERNS.
--- NOTE | 2019-07-16 05:19 | NUR ---
SHIFT SUMMARY- PT. ALERT WITH INTERMITTENT CONFUSION. RESTED COMFORTABLY T/O THE SHIFT, NO APPARENT DISTRESS NOTED. DENIED ANY NEEDS DURING THE NIGHT. NO C/O PAIN OR DISCOMFORT. PT. ON 2L OF O2, VSS. NO ACUTE CHANGES TO CONDITION. CALL LIGHT WITHIN REACH, SIDE RAILS UP X2, AND BED ALARM ON FOR SAFETY. WILL CONT TO MONITOR.
[2019-07-16 05:36] LABS: BASOPHILS PERCENT AUTO 0 % (0-2); EOSINOPHILS PERCENT AUTO 0 % (0-6); Hematocrit 33.1 % (37.0-53.0); Hemoglobin 10.5 g/dL (13.5-17.5); IMMATURE GRAN ABSOLUTE AUTO 0.04 K/mm3 (0.00-0.10); IMMATURE GRAN PERCENT AUTO 1 % (0-1); LYMPHOCYTES ABSOLUTE AUTO 1.03 K/mm3 (0.84-5.20); LYMPHOCYTES PERCENT AUTO 12 % (21-46); MONOCYTES ABSOLUTE AUTO 0.43 K/mm3 (0.16-1.47); MONOCYTES PERCENT AUTO 5 % (4-13); Mean Corpuscular HGB Conc 31.7 g/dL (31.5-36.5); Mean Platelet Volume 10.6 fL (9.1-12.4); NEUTROPHILS ABSOLUTE AUTO 6.89 K/mm3 (1.96-9.15); NEUTROPHILS PERCENT AUTO 82 % (41-73); Platelet Count 221 K/mm3 (150-400); RDW Coefficient Variation 14.3 % (11.7-14.2); RDW Standard Deviation 47.8 fL (35.1-46.3); Red Blood Cell Count 3.62 M/mm3 (4.30-5.90); White Blood Cell Count 8.39 K/mm3 (4.00-11.30)
[2019-07-16 05:37] LABS: Mean Corpuscular Volume 91 fL (80-100)
[2019-07-16 06:19] LABS: Albumin, Blood 2.7 g/dL (3.4-5.0); Anion Gap 7 mmol/L (6-16); Blood Urea Nitrogen 26 mg/dL (8-24); Bun/Creatinine Ratio 28.9 (12.0-20.0); CO2, Blood 22 mmol/L (21-32); Calcium, Blood 8.4 mg/dL (8.5-10.1); Chloride, Blood 110 mmol/L (98-108); Glomerular Filtration Rate >60 (60-); Glucose, Blood 110 mg/dL (70-99); Phosphorus, Blood 2.3 mg/dL (2.5-4.9); Potassium, Blood 3.7 mmol/L (3.5-5.5); Sodium, Blood 139 mmol/L (136-145)
--- NOTE | 2019-07-16 16:48 | NUR ---
SHIFT SUMMARY. PT MUCH MORE ALERT THIS SHIFT, ORIENTATED TO SELF, PLACE, AND FAMILY, PT HAS DIFFIUCLTY WITH SITUATION AND DATE. PT DENIES PAIN, SOB, N/V THIS SHIFT. GOOD PO INTAKE. MIXED CONTINENCE/INCONTINENCE. PT/OT EVAL COMPLETED TODAY, PT TOLERATED WELL.
--- NOTE | 2019-07-16 16:50 | NUR ---
SHIFT SUMMARY. PT MORE ALERT THIS SHIFT, ORIENTATED TO SELF AND FAMILY, SLOW TO RESPOND, ANSWERS Y/N QUESTIONS APPROPRIATLEY. ST EVAL COMPLETED TODAY, PT CONTINUES WITH ORDERS FOR STRICT NPO. , PALLIATIVE CARE, AND MD SPOKE WITH AND DAUGHTER ABOUT RESULTS OF ST EVAL AND ADVANCED CARE PLANNING. JOY COLON, STEAM CLEANING MACHINE OPERATOR IN TO SEE PT FOR PSYCH EVAL. FREQUENT ORAL CARE COMPLETED BY CLEATER.EEG NOT YET COMPLETED. PT INCONTINENT, ROUTINE INCONTINENCE CARE AND TURNING COMPLETED. PREVENTIVE MEPILEX DRESSINGS IN PLACE OVER ALL YOMAIRA PROMINENCES, C/D/I.
--- NOTE | 2019-07-17 04:55 | NUR ---
SHIFT SUMMARY- NO ACUTE CHANGES OVERNIGHT. PT. RESTED COMFORTABLY IN BED T/O THE SHIFT. NO APPARENT DISTRESS NOTED. PT. SON AT BEDSIDE EARLIER IN THE NIGHT. PT. C/O FOOT PAIN 1X, MEDICATED FOR PAIN PER EMAR. NO NEEDS DURING THE NIGHT. CALL LIGHT WITHIN REACH, SIDE RAILS UP X2, AND BED ALARM ON. WILL CONT TO MONITOR.
--- NOTE | 2019-07-17 15:58 | NUR ---
SHIFT SUMMARY: PT HAS BEEN A/O X 3 WITH SOME MILD CONFUSION. HE C/O PAIN WITH RE-POSITIONING AND TYLENOL HAS BEEN GIVEN ORDERED. SWELLING REMAINS TO LEFT SIDE OF HIS FACE. PT IS INC OF B/B AND IS A X 2 ASSIST FOR TURNING AND RE-POSITIONING. HIS SON BROUGHT IN A CPAP FROM HOME AND THE DOCTOR WAS NOTIFIED AND GAVE ORDERS TO USE HOME CPAP WITH HOME SETTING, RT WAS CALLED AND CAME AND SET IT UP AT THE BEDSIDE. PT IS VERY PLEASANT AND COOPERATIVE WITH HIS CARE. HE USES CALL LIGHT APPROPRIATELY FOR HELP WHEN NEEDED FOR THE MOST PART BUT DOES NEED SOME RE-DIRECTION AT TIMES.
--- NOTE | 2019-07-17 17:30 | NUR ---
AFTER BP/PULSE WERE ELEVATED. HYDRALAZINE WAS GIVEN ORDERED BUT WAS NOT EFFECTIVE. DOCTOR WAS NOTIFIED AND GAVE ORDERS TO START TELE. MANAGER BEVERAGE WAS NOTIFIED TO SEND TELE BOX. PT IS RESTING CLAMLY IN BED AND REMAINS ASYMPTOMATIC.
--- NOTE | 2019-07-17 19:19 | NUR ---
tele remains Atrial Fib 130's per PCU environmental monitoring specialist. patient asymptomatic resting in bed. BP 150/100 manual on left arm. call placed to hospitalist will continue close monitoring
--- NOTE | 2019-07-17 20:01 | NUR ---
spoke with the night hospitalist regarding rate, rhythm and BP, no new orders. she is going to look at patient's tele and and VS and see if patients HR comes down after the cardizem has been on board for a little longer
--- NOTE | 2019-07-17 21:46 | NUR ---
patient still in A fib now rate of 150's-160's per vehicle modification technician. BP 127/93. Call placed again to to notify
--- NOTE | 2019-07-18 03:18 | NUR ---
Patient tele demonstrates a fib 115-120's per PCU wind technicianGee johnston.
--- NOTE | 2019-07-18 05:17 | NUR ---
AUTOMATIC PATTERN EDGER SUMMARY Pt awake intermittantly all night. heart rhythm that had converted to Atrial Fibrillation yesterday afternoon continuously climbed until it reached between 150's and 160's. MD notified that oral dose of cardizem was not altering the rhythm or the rate of his atrial fib. One time IV cardizem dose ordered and given as soon as available. within 30 minutes, heart rate slowly came down eventually to 100-105 on tele monitor. pt remains in A Fib. no complaints of discomfort or SOB overnight.
--- NOTE | 2019-07-18 05:57 | NUR ---
BRICK AND TILE MAKING MACHINE OPERATOR SUMMARY patient up with family bryant just after midnight. one incont secondary to urgency. otherwise 2 voids in urinal with scan no greater than 150. patient was alert and oriented X4 on assessment and throughout night. skin very pale with wounds dressed in foam all over. most notably on back and left hip. several bruises elsewhere on arms and legs. urine pale yellow and clear. no complaints of pain or discomfort overnight. patient did get oob with strong 2 person pivot for 2-3 hours in recliner.
--- NOTE | 2019-07-18 14:58 | NUR ---
TRAILER PARK MANAGER CALLED TO REPORT THAT THE PT HAD A 7 BEAT RUN OF V TACH AND WAS HAVING INCREASING PVC'S. PT WAS SITTING ON THE SIDE OF THE BED WORKING WITH OT. HE WAS LAID BACK DOWN IN BED. DR PAYTON WAS NOTIFED AND GAVE NO NEW ORDERS. PT APPEARED TO BE AT BASELINE AND WAS IN NO DISTRESS. PT IS NOW RESTING IN BED. AND TRAILER PARK MANAGER REPORTS AND RATE OF 120 IN A-FIB WITH OCCATIONAL PVC'S.
--- NOTE | 2019-07-18 15:38 | NUR ---
SHIFT SUMMARY: PT HAS BEEN A/O X 3 WITH BASELINE CONFUSION AND C/O PAIN X 1 FOR WHICH TYLENOL WAS GIVEN ORDERED AND WAS EFFECTIVE. PER INDUSTRIAL RETROFIT DESIGNER PT CONTINUES TO BE IN A-FIB WITH PVC'S THIS AFTERNOON AND A RATE IN THE ONE TEENS OR HIGHER. HE CONTINUES TO BE ASYMPTOMATIC AND DR GRACIA IS AWARE. HE WORKED WITH PT THIS MORNING ANF GOT UP TO THE CHAIR WITH X 2 ASSIST BUT WAS UNCOMFORTABLE AND ANXIOUS AND QUICKLY ASKED TO GO BACK TO BED. THIS AFTERNOON WHILE WORKING WITH OT IS WHEN IS HEART RATE INCREASED SIGNIFICANTLY AND THIS NURSE ASKED THE CHANDLER TO LAY THE PT BACK DOWN IN BED SO HE COULD REST. RT CONTINUES TO WORK WITH THE PT AND HE IS RECEIVING PRN BREATHING TX NEEDED. PT IS ON 4 LPM OF O2 VIA N.C. HE WAS DROPPING DOWN INTO THE HIGH 80'S AND LOW 90'S WHILE AT REST. PT CONTINUES ON CONTINUOUS PULSE OX. LEFT SIDE FACE SWELLING REMAINS BUT IS RESOLVING. IV ABO INFUSED ORDERED WITH NO ISSUE. SON BROUGHT IN HOME INHALERS AND RT WAS NOTIFIED AND THEY WERE SENT TO THE PHARMACY FOR LABELING. PT IS VERY PLEASANT AND COOPERATIVE WITH HIS CARE. HE IS ABLE TO MAKE HIS NEEDS KNOWN FOR THE MOST PART. HE IS INC OF B/B AND REQUIRES X 2 ASSIST FOR TURNING, RE-POSITIONING AND TOILETING. HE IS RESTING IN BED WITH HIS CALL LIGHT IN REACH.
--- NOTE | 2019-07-18 17:38 | NUR ---
SIGNAL MAINTAINER CALLED TO REPORT ANOTHER RUN OF [facility]. PT IS SITTING UP IN HIS CHAIR ASYMPTOMATIC. HE IS ALERT TO BASELINE. DR GRACIA WAS NOTIFIED AND GAVE ORDERS FOR BLOOD LABS. PO MEDS GIVEN ORDERED.
--- NOTE | 2019-07-18 18:03 | NUR ---
OFFICE MANAGER EXECUTIVE ASSISTANT CALLED REPORT [facility] RUNS WITH A RATE TOOUCHING IN THE 170'S. DR GRACIA NOTIFIED AND GAVE ORDERS FOR CARDIZEM REFLECTED ON THE MAR AND TRANSFER TO PCU TO START CARDIZEM DRIP. CHARGE NURSE NOTIFIED. PT REMAINS UP IN CHAIR EATING DINNER AND IS ASYPMTOMATIC.
[2019-07-18 18:24] LABS: Albumin, Blood 2.8 g/dL (3.4-5.0); Anion Gap 9 mmol/L (6-16); Blood Urea Nitrogen 24 mg/dL (8-24); CO2, Blood 23 mmol/L (21-32); Calcium, Blood 8.4 mg/dL (8.5-10.1); Chloride, Blood 108 mmol/L (98-108); Glomerular Filtration Rate >60 (60-); Glucose, Blood 139 mg/dL (70-99); Phosphorus, Blood 3.3 mg/dL (2.5-4.9); Potassium, Blood 3.3 mmol/L (3.5-5.5); Sodium, Blood 140 mmol/L (136-145)
--- NOTE | 2019-07-18 18:44 | NUR ---
RECIEVED BEDSIDE REPORT FROM CLARI WADDELL, MEG DRIP STARTED AT 5MG/HR FOR HR RANGING FROM 100-120s. PT ALERT, ANSWERING QUESTIONS APPROPRIATELY, REPORTS SOME SOB, DENIES CP. PER REPORT PT HAS HAD NUMEROUS RUNS OF V-TACH TODAY, MANY EPISODES IN THE LAST FEW MINUTES, PT HAS NOT HAD ANY RUNS SINCE ARRIVING TO PCU, BUT MIXING MACHINE OPERATOR CONFIRMS NUMEROUS RUNS PRIOR TO ARRIVAL AND T/O THE DAY
--- NOTE | 2019-07-18 18:54 | NUR ---
DR GRACIA CALLED TO REPORT NEW LABS REQUESTED, NEW TELEPHONE ORDERS OBTAINED FOR [facility] WHICH WERE PLACED
--- NOTE | 2019-07-19 06:48 | NUR ---
SHIFT SUMMARY PT A&O TO SELF, FOLLOWING INSTRUCTIONS. MONITOR SHOWS AFIB, HR 80's-110. CARDIZEM GTT INFUSING @ 5 MG/HR AT THIS TIME. PT W/ OCCASSIONAL HARSH, NONPRODUCTIVE COUGH. SP02 > 92% ON 3L NC, TITRATED DOWN FROM 4L NC THIS SHIFT. PT REPORTS 3L NC HOME BASELINE, PT TOLERATING WELL.PT INCONTINENT OF BOWEL W/ 2 SOFT BROWN BM'S THIS SHIFT. STOOL SOFTENERS HELD. WILL CONTINUE TO MONITOR AND PROVIDE CARE UNTIL REPORT OFF TO DAY SHIFT RN.
--- NOTE | 2019-07-19 10:28 | NUR ---
Dr. Nazario at bedside, requesting RT in for CPAP Mask fitting. RT notified.
[2019-07-19 10:44] LABS: Albumin, Blood 2.6 g/dL (3.4-5.0); Anion Gap 7 mmol/L (6-16); Blood Urea Nitrogen 25 mg/dL (8-24); Bun/Creatinine Ratio 24.8 (12.0-20.0); CO2, Blood 23 mmol/L (21-32); Chloride, Blood 111 mmol/L (98-108); Creatinine, Blood 1.01 mg/dL (0.60-1.20); Glomerular Filtration Rate >60 (60-); Glucose, Blood 100 mg/dL (70-99); Magnesium, Blood 1.9 mg/dL (1.6-2.4); Phosphorus, Blood 2.3 mg/dL (2.5-4.9); Potassium, Blood 3.3 mmol/L (3.5-5.5); Sodium, Blood 141 mmol/L (136-145)
--- NOTE | 2019-07-19 12:15 | NUR ---
CARDIZEM GTT TURNED OFF. PO CARDIZEM GIVEN PER ORDERS
--- NOTE | 2019-07-19 13:15 | NUR ---
Update Pt's son at bedside, pt with continued intermittant confusion, but reorientable with direction. Pt's son states this is baseline for pt "since his strokes". Pt also stating "Beatriz is in the room" Pt's son also mentioned pt has had episodes of "seeing things" in the past. Pt calm and cooperative. VSS
--- NOTE | 2019-07-19 14:51 | NUR ---
Pt sleeping currently, HR trending 80-90's, cardizem gtt off since approx 1205.
--- NOTE | 2019-07-19 18:25 | NUR ---
Shift Summary No acute changes this shift, pt remains alert and oriented with intermittant times of confusion (especially right after waking). VSS. Pt off cardizem gtt since 1205 and HR tolerating with PO cardizem. Pt been sleeping on and off this shift. Pt's son at bedside on and off this shift, involved in care. Pt's son expresses following concerns: PT appointment this afternoon was "too much" and pt's son concerned about placement at discharge (states he wants father to come home with him). At this time, plan is to DC possibly monday to SNF. care management on board. No acute changes from initial shift assessment. No swelling to face. Pt able to make needs knonw.
--- NOTE | 2019-07-20 07:25 | NUR ---
ASSUMED CARE: PT RESTING IN BED, HAD PULLED CPAP OFF, NIGHT RN ASSISTED WITH REPLACING. NO FURTHER NEEDS OR DISTRESS. BED ALARM ON. AFIB IN 80S ON TELE AT THIS TIME.
--- NOTE | 2019-07-20 07:29 | NUR ---
SHIFT SUMMARY PATIENT PLEASENT AND COOPERATIVE THROUGHOUT THE NIGHT. PATIENT FORGETFUL AT TIMES BUT EASILY REORIENTED. PATIENT WOULD FREQUENTLY REMOVE O2 TUBING OR CPAP, IT WAS REPLACED BY STAFF EACH TIME AND PATIENT WAS REORIENTED. PATEINT TURNED Q2H. IV ABX GIVEN PER EMAR. PATEINT APPEARED TO SLEEP WELL THROUGHOUT MOST OF THE NIGHT. PATIENT CURRENTLY APPEARS TO BE ASLEEP. REPORT GIVEN TO ONCOMING RN.
--- NOTE | 2019-07-20 07:40 | NUR ---
ASSUMED CARE OF PT. IN NO ACUTE DISTRESS AT THIS TIME. DENIES ANY NEEDS AT THIS TIME. CALL LIGHT AND POSSESSIONS IN REACH. WILL CONTINUE TO MONITOR.
[2019-07-20] MEDS ORDERED: DILT120 PO (12:56)
--- NOTE | 2019-07-20 14:50 | NUR ---
PT TRANSPORTED VIA [facility] BY WHEEL CHAIR. REPORT CALLED TO [facility] BY LEONCIO WADDELL.
--- NOTE | 2019-07-20 14:58 | NUR ---
[facility]. PT TRANSPORTED [facility]IA [facility].
== END 2019-07-20 14:40 | DRG 155 ==
LOC: ER 23:21 → MEDS 07-13 04:17 → ERHOLD 07-13 04:17 → PCU 07-13 04:48 → MEDS 07-13 14:16 → PCU 07-18 18:28
PROVIDERS: Emergency Medicine; Family Medicine; Physician Assistant; ADMIT Internal Medicine
DX: K11.21 Acute sialoadenitis (principal); L03.211 Cellulitis of face; I48.20 Chronic atrial fibrillation, unspecified; I10 Essential (primary) hypertension; G47.30 Sleep apnea, unspecified; K21.9 Gastro-esophageal reflux disease without esophagitis; E03.9 Hypothyroidism, unspecified; Z86.73 Personal history of transient ischemic attack (TIA), and cerebral infarction without residual deficits; Z79.82 Long term (current) use of aspirin; K59.00 Constipation, unspecified; E87.6 Hypokalemia; M54.9 Dorsalgia, unspecified; F32.9 Major depressive disorder, single episode, unspecified; D63.8 Anemia in other chronic diseases classified elsewhere
CPT/HCPCS: 36415; 70491; 80047; 80053; 80069; 82947; 83036; 83735; 85014; 85025; 85027; 85610; 85730; 94640; 94762; 96365-59; 96375-59; 96376-59; 97110; 97116; 97163; 97167; 97530; 97535; 99284-25; A9270; J0360; J1630; J1650; J1885; J2405; J2543; J2920; J3010; J3480; J7030; J7050; J7060; J7120; J7512; Q9967

== ENCOUNTER 2020-01-10 19:33 | Observation (INO) | payer OTHER ==
[~2020-01-10] VITALS: Ht 182.9 cm; Wt 79.4 kg
[~2020-01-10 19:33] MED LIST changes: +DILT120 PO; +EUTHYROX50 MCG PO; +HIGH POTENCY P1 EAC1 PO; -LEVSOD50 PO; -Minipress1 MG PO; +PRAZ2 PO; -Vsl#3 Capsule1 EACH PO
[2020-01-10 20:40] LABS: BASOPHILS ABSOLUTE AUTO 0.01 K/mm3 (0.00-0.23); BASOPHILS PERCENT AUTO 0 % (0-2); EOSINOPHILS PERCENT AUTO 5 % (0-6); IMMATURE GRAN PERCENT AUTO 0 % (0-1); LYMPHOCYTES ABSOLUTE AUTO 1.78 K/mm3 (0.84-5.20); LYMPHOCYTES PERCENT AUTO 44 % (21-46); MONOCYTES ABSOLUTE AUTO 0.32 K/mm3 (0.16-1.47); MONOCYTES PERCENT AUTO 8 % (4-13); Mean Corpuscular HGB 18.8 pg (26.0-34.0); Mean Corpuscular Volume 75 fL (80-100); Mean Platelet Volume 10.6 fL (9.1-12.4); NEUTROPHILS ABSOLUTE AUTO 1.72 K/mm3 (1.96-9.15); NEUTROPHILS PERCENT AUTO 43 % (41-73); Platelet Count 288 K/mm3 (150-400); RDW Coefficient Variation 19.4 % (11.7-14.2); RDW Standard Deviation 53.4 fL (35.1-46.3); Red Blood Cell Count 2.07 M/mm3 (4.30-5.90); White Blood Cell Count 4.03 K/mm3 (4.00-11.30)
[2020-01-10 20:43] LABS: Hematocrit 15.6 % (37.0-53.0)
[2020-01-10 20:44] LABS: Hemoglobin 3.9 g/dL (13.5-17.5)
[2020-01-10 20:53] LABS: Alanine Aminotransfer (ALT/SGP 14 U/L (12-78); Albumin, Blood 3.1 g/dL (3.4-5.0); Albumin/Globulin Ratio 0.8 (0.8-1.8); Alk Phos 83 U/L (50-136); Anion Gap 4 mmol/L (6-16); Aspartate Aminotrans (AST/SGOT 14 U/L (12-37); Bilirubin, Total 0.3 mg/dL (0.1-1.0); Blood Urea Nitrogen 18 mg/dL (8-24); Bun/Creatinine Ratio 19.3 (12.0-20.0); CO2, Blood 25 mmol/L (21-32); Calcium, Blood 8.2 mg/dL (8.5-10.1); Chloride, Blood 112 mmol/L (98-108); Creatinine, Blood 0.93 mg/dL (0.60-1.20); Globulin, Blood 3.7 g/dL (2.2-4.0); Glomerular Filtration Rate >60 (60-); Glucose, Blood 110 mg/dL (70-99); Sodium, Blood 141 mmol/L (136-145); Total Protein, Blood 6.8 g/dL (6.4-8.2)
[2020-01-10 23:18] LABS: International Normalized Ratio 1.02; Prothrombin Time Results 10.9 Sec (9.7-11.5)
--- NOTE | 2020-01-11 02:35 | NUR ---
ASSUMED CARE OF PATIENT AT APPROXIMATELY 0010 FROM ED NADIRA Uribe PATIENT ARRIVED TO UNIT VIA STRETCHER; TRANSFER FROM ED TO PCU STRETCHER VIA SLIDE SHEET AND MAX STAFF ASSIST. PATIENT WEAK; ANEMIC; HGB 3.; 1 RBC INFUSING W/ PROTONIX GTT UPON TRANSFER TO UNIT. 2ND RBC STARTED BY GENERAL PRACTITIONER DAN M.; STATED IN ROOM WITH PATIENT FIRST 15 MINUTES; ONE MORE RBC TO BE INFUSED (3 TOTAL). PATIENT ALERT AND ORIENTED TO SELF, AND LOCATION. 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 PATIENT DENIES PAIN, NUMBNESS, TINGLING, DIZZINESSS OR NAUSEA. ADMISSION COMPLETE. AFIB ON TELE W/ A RATE OF 60-80; OXYGEN SATURATION ABOVE 90% ON ROOM AIR. SCDS PLACED. PATIENT CURRENTLY RESTING IN BED; CALL LIGHT IN REACH; BED IN LOWEST POSISTION; BED ALARM ON; WILL CONTINUE TO MONITOR AND ASSESS UNTIL END OF SHIFT.
--- NOTE | 2020-01-11 06:52 | NUR ---
3RD UNIT RBC COMPLETED; LAB CURRENTLY DRAWING LABS. NO ACUTE CHANGES TO REPORT. VSS. WILL CONTINUE TO MONITOR AND ASSESS UNTIL END OF SHIFT.
[2020-01-11 07:25] LABS: BASOPHILS ABSOLUTE AUTO 0.06 K/mm3 (0.00-0.23); BASOPHILS PERCENT AUTO 2 % (0-2); EOSINOPHILS ABSOLUTE AUTO 0.24 K/mm3 (0.00-0.68); EOSINOPHILS PERCENT AUTO 6 % (0-6); Hematocrit 22.1 % (37.0-53.0); Hemoglobin 6.5 g/dL (13.5-17.5); IMMATURE GRAN ABSOLUTE AUTO 0.01 K/mm3 (0.00-0.10); IMMATURE GRAN PERCENT AUTO 0 % (0-1); LYMPHOCYTES ABSOLUTE AUTO 1.53 K/mm3 (0.84-5.20); LYMPHOCYTES PERCENT AUTO 40 % (21-46); MONOCYTES ABSOLUTE AUTO 0.32 K/mm3 (0.16-1.47); MONOCYTES PERCENT AUTO 8 % (4-13); Mean Corpuscular HGB 23.5 pg (26.0-34.0); Mean Corpuscular HGB Conc 29.4 g/dL (31.5-36.5); Mean Corpuscular Volume 80 fL (80-100); Mean Platelet Volume 10.8 fL (9.1-12.4); NEUTROPHILS ABSOLUTE AUTO 1.64 K/mm3 (1.96-9.15); NEUTROPHILS PERCENT AUTO 43 % (41-73); Platelet Count 224 K/mm3 (150-400); RDW Standard Deviation 55.5 fL (35.1-46.3); Red Blood Cell Count 2.77 M/mm3 (4.30-5.90)
[2020-01-11 07:35] LABS: Anion Gap 5 mmol/L (6-16); Blood Urea Nitrogen 15 mg/dL (8-24); Bun/Creatinine Ratio 16.4 (12.0-20.0); CO2, Blood 25 mmol/L (21-32); Chloride, Blood 111 mmol/L (98-108); Creatinine, Blood 0.91 mg/dL (0.60-1.20); Glomerular Filtration Rate >60 (60-); Glucose, Blood 87 mg/dL (70-99); Potassium, Blood 3.6 mmol/L (3.5-5.5); Sodium, Blood 141 mmol/L (136-145)
--- NOTE | 2020-01-11 08:18 | NUR ---
PT LAYING IN BED AWAKE ALERT, FORGETFUL, FOLLOWS COMMANDS WELL, LUNGS ARE CLEAR, DIM IN BASES, RESP EVEN AND UNLABORD, NO COUGH NOTED, ON R/A, HRIRR, TELE IN PLACE RUNNING AFIB PER MONITOR, SEE STRIP, NO EDEMA NOTED, PPP+2, CAP REFILL <3SEC, VS STABLE, AFEBRILE, IV SITES ARE CLEAR AND PATENT, BTX4, ABD FLAT SOFT NONTENDER, VOIDS VIA URINAL WITH ASSIST, SKIN C/W/D, FELICIA CARBONE, CALL LIGHT IN REACH, WILL ADMINISTER ANOTHER UNIT OF PRBC THIS AM.
--- NOTE | 2020-01-11 09:57 | NUR ---
started transfusion of one unit. iv to rac was puffy, placed new 20g to rfa with good blood return, call light in reach.
[2020-01-11 11:35] LABS: Percent Saturation 53.2 % (20.0-50.0)
--- NOTE | 2020-01-11 14:16 | NUR ---
PATIENT LEFT DENTURES IN ROOM. ANSWERS ALL QUESTIONS APPROPRIATELY, A/OX3.
[2020-01-11] MEDS ORDERED: SERT100 PO (15:07)
[2020-01-11] MEDS ORDERED: PANT40 PO (15:12)
[2020-01-11] MEDS ORDERED: GUAI200 PO (15:17)
[2020-01-11] MEDS ORDERED: Loratadine10 MG PO (15:18)
[2020-01-11] MEDS ORDERED: POTCIT10 PO (15:18)
--- NOTE | 2020-01-11 15:25 | NUR ---
pt returned to room after egd, is awake, vs stable, son in attendence. call light in reach.
--- NOTE | 2020-01-11 16:11 | NUR ---
Pt resting in bed upon arrival. Pt is A&OX3/4. Pt provides appropriate reason for place and reason for hospital stay. When asked current date or year Pt looks at whiteboard. Pt denies pain and dyspnea at this time. Pt's son Sarthak is at bedside. Engaged in therapeutic discussion regarding goals of care, plan of care, and concerns Sarthak expresses. Listened as Sarthak discusses reasons of decision for Pt to revoke hospice. Educated Pt and Ray that Pt can choose hospice at anytime in the future. Discussed completing POLST with Sarthak denying need at this time. Continued therapeutic listening. Spoke with Bedside NADIRA Alex and discussed case. Palliative Care will remain available.
[2020-01-11 16:44] LABS: Hematocrit 24.4 % (37.0-53.0); Hemoglobin 7.4 g/dL (13.5-17.5)
--- NOTE | 2020-01-11 18:22 | NUR ---
pt laying in bed, eating dinner, states he's doing fine, no complaints. no acute changes, call light in reach.
--- NOTE | 2020-01-11 20:17 | NUR ---
93/68 TAKEN IN RIGHT ARM; LOWER IN RIGHT ARM
[2020-01-12 04:54] LABS: BASOPHILS ABSOLUTE AUTO 0.04 K/mm3 (0.00-0.23); BASOPHILS PERCENT AUTO 1 % (0-2); EOSINOPHILS PERCENT AUTO 6 % (0-6); Hematocrit 24.2 % (37.0-53.0); Hemoglobin 7.3 g/dL (13.5-17.5); IMMATURE GRAN ABSOLUTE AUTO 0.01 K/mm3 (0.00-0.10); IMMATURE GRAN PERCENT AUTO 0 % (0-1); LYMPHOCYTES ABSOLUTE AUTO 1.59 K/mm3 (0.84-5.20); LYMPHOCYTES PERCENT AUTO 30 % (21-46); MONOCYTES ABSOLUTE AUTO 0.46 K/mm3 (0.16-1.47); MONOCYTES PERCENT AUTO 9 % (4-13); Mean Corpuscular HGB 24.2 pg (26.0-34.0); Mean Corpuscular HGB Conc 30.2 g/dL (31.5-36.5); Mean Corpuscular Volume 80 fL (80-100); Mean Platelet Volume 10.4 fL (9.1-12.4); NEUTROPHILS ABSOLUTE AUTO 2.91 K/mm3 (1.96-9.15); NEUTROPHILS PERCENT AUTO 55 % (41-73); Platelet Count 211 K/mm3 (150-400); RDW Coefficient Variation 19.1 % (11.7-14.2); RDW Standard Deviation 56.6 fL (35.1-46.3); Red Blood Cell Count 3.02 M/mm3 (4.30-5.90); White Blood Cell Count 5.31 K/mm3 (4.00-11.30)
[2020-01-12 05:19] LABS: Alanine Aminotransfer (ALT/SGP 12 U/L (12-78); Albumin, Blood 2.8 g/dL (3.4-5.0); Albumin/Globulin Ratio 0.8 (0.8-1.8); Alk Phos 78 U/L (50-136); Anion Gap 6 mmol/L (6-16); Aspartate Aminotrans (AST/SGOT 13 U/L (12-37); Bilirubin, Total 0.8 mg/dL (0.1-1.0); Blood Urea Nitrogen 12 mg/dL (8-24); Bun/Creatinine Ratio 12.5 (12.0-20.0); CO2, Blood 25 mmol/L (21-32); Calcium, Blood 8.1 mg/dL (8.5-10.1); Chloride, Blood 111 mmol/L (98-108); Creatinine, Blood 0.96 mg/dL (0.60-1.20); Globulin, Blood 3.3 g/dL (2.2-4.0); Glomerular Filtration Rate >60 (60-); Glucose, Blood 88 mg/dL (70-99); Potassium, Blood 3.4 mmol/L (3.5-5.5); Sodium, Blood 142 mmol/L (136-145); Total Protein, Blood 6.1 g/dL (6.4-8.2)
--- NOTE | 2020-01-12 07:04 | NUR ---
ASSUMED CARE OF PATIENT AT 1915. PATIENT ALERT AND ORIENTED AT THE START OF SHIFT. PATIENT EDUCATED ON THE NEED FOR USING CALL LIGHT FOR ANY AMBULATION HE IS UNSTEADY ON HIS FEET. PATIENT USED CALL LIGHT AT THE BEGINNING OF SHIFT BUT WAS UNCOMPLIANT THROUGHOUT THE NIGHT. BED ALARM ON, BED IN THE LOWEST POSITION. NORMAL SINUS ON THE MONITOR, NO COMPLAINTS OF PAIN OR DIZZINESS. WILL CONTINUE TO MONITOR UNTIL THE END OF SHIFT.
--- NOTE | 2020-01-12 08:30 | NUR ---
pt sleeping hard, wakes when touched, a/ox3 but forgetful, was reported that he was confused durring the night, lungs are clear, dim in bases, resp even and unlabord, on r/a at this time, no cough noted, hrirr, tele in place running afib per monitor, see strip, no edema noted, ppp+1, cap refill <3sec, vs stable, afebrile, iv sites are clear and patent, s.l. btx4, abd flat soft nontender, had a bm last night, was reported was brown, voids via urinal, skin c/w/d, majay, turner, call light in reach.
--- NOTE | 2020-01-12 17:24 | NUR ---
SHIFT SUMMARY PATIENT IS PLEASANT, ALERT AND ORIENTED BUT MILDLY HARD OF HEARING. PATIENT DENIES ANY CONCERNS AND PATIENT'S SON SAYS HE LOOKS MUCH BETTER. HE HAS HAD 4 UNITS OF PRBCS SINCE HE HAS BEEN ADMITTED TO THE HOSPITAL. HE IS CURRENLTY RESTING IN BED ABOUT TO HAVE DINNER. NO ACUTE CONCERNS PER PATIENT OR FAMILY MEMBER.
[2020-01-13 05:57] LABS: BASOPHILS ABSOLUTE AUTO 0.04 K/mm3 (0.00-0.23); BASOPHILS PERCENT AUTO 1 % (0-2); EOSINOPHILS ABSOLUTE AUTO 0.32 K/mm3 (0.00-0.68); EOSINOPHILS PERCENT AUTO 6 % (0-6); Hematocrit 24.6 % (37.0-53.0); Hemoglobin 7.3 g/dL (13.5-17.5); IMMATURE GRAN ABSOLUTE AUTO 0.02 K/mm3 (0.00-0.10); IMMATURE GRAN PERCENT AUTO 0 % (0-1); LYMPHOCYTES ABSOLUTE AUTO 1.57 K/mm3 (0.84-5.20); LYMPHOCYTES PERCENT AUTO 29 % (21-46); MONOCYTES ABSOLUTE AUTO 0.43 K/mm3 (0.16-1.47); MONOCYTES PERCENT AUTO 8 % (4-13); Mean Corpuscular HGB 24.1 pg (26.0-34.0); Mean Corpuscular HGB Conc 29.7 g/dL (31.5-36.5); Mean Corpuscular Volume 81 fL (80-100); Mean Platelet Volume 10.3 fL (9.1-12.4); NEUTROPHILS ABSOLUTE AUTO 3.05 K/mm3 (1.96-9.15); NEUTROPHILS PERCENT AUTO 56 % (41-73); Platelet Count 209 K/mm3 (150-400); RDW Coefficient Variation 20.2 % (11.7-14.2); RDW Standard Deviation 60.1 fL (35.1-46.3); Red Blood Cell Count 3.03 M/mm3 (4.30-5.90); White Blood Cell Count 5.43 K/mm3 (4.00-11.30)
--- NOTE | 2020-01-13 06:38 | NUR ---
SHIFT SUMMARY PT IS A 84 Y/O MALE, ADMITTED FOR A GI BLEED. HE IS A&O X 3, [place]. NO COMPLAINTS OF ACUTE PAIN, NAUSEA OR SOB. VITAL SIGNS STABLE. NO ACUTE CHANGES IN PT CONDITION NOTED. WILL CONTINUE TO MONITOR AND TREAT PER EMAR UNTIL HAND OFF TO DAY SHIFT RN.
[2020-01-13] MEDS ORDERED: DILT120 PO (15:28)
[2020-01-13] MEDS ORDERED: ALBU2.5V5 INH (15:30)
--- NOTE | 2020-01-13 16:11 | NUR ---
DISCHARGE DISCHARGE INSTRUCTIONS, MEDICATION LIST AND FOLLOW UP APPOINTMENT REVIEWED WITH PT AND HIS SON. QUESTIONS/CONCERNS ANSWERED. BOTH VERBALLY INDICATED UNDERSTANDING OF ALL INSTRUCTIONS RECEIVED. ESCORTED OUT BY RESIDENT BUYER VIA W/C
== END 2020-01-13 16:14 | disposition home health service (06) ==
LOC: ER 19:33 → PCU 19:34 → MEDS 01-12 15:57
PROVIDERS: Emergency Medicine; Internal Medicine; Nurse Practitioner Acute Care; Student in an Organized Health Care Education/Training Program; ADMIT Internal Medicine
PROC: 0DJ08ZZ Inspection of Upper Intestinal Tract, Via Natural or Artificial Opening Endoscopic (ICD-10-PCS; principal; 2020-01-11 13:45)
DX: D64.9 Anemia, unspecified (principal); K92.1 Melena; K22.10 Ulcer of esophagus without bleeding; K44.9 Diaphragmatic hernia without obstruction or gangrene; K25.9 Gastric ulcer, unspecified as acute or chronic, without hemorrhage or perforation; I10 Essential (primary) hypertension; E03.9 Hypothyroidism, unspecified; Z74.09 Other reduced mobility; E44.0 Moderate protein-calorie malnutrition; R53.1 Weakness; Z86.73 Personal history of transient ischemic attack (TIA), and cerebral infarction without residual deficits; F03.90 Unspecified dementia, unspecified severity, without behavioral disturbance, psychotic disturbance, mood disturbance, and anxiety; Z88.8 Allergy status to other drugs, medicaments and biological substances; Z87.891 Personal history of nicotine dependence; Z66 Do not resuscitate; Z79.82 Long term (current) use of aspirin; Z79.02 Long term (current) use of antithrombotics/antiplatelets; Z79.899 Other long term (current) drug therapy; Z68.23 Body mass index [BMI] 23.0-23.9, adult
CPT/HCPCS: 36415; 36430; 80048; 80053; 82728; 83540; 83550; 83735; 84443; 85014; 85018; 85025; 85610; 85730; 86850; 86900; 86901; 86923; 94640; 94760; 94762; 96365; 96366; 96375; 96376; 97162; 97530; 99284-25; A9270-GY; C9113; G0378; J2704; J2916; J7030; J7050; J7120; P9016; U0002

== ENCOUNTER 2020-04-05 00:13 | Emergency (ER) | payer OTHER ==
[~2020-04-05] VITALS: Ht 177.8 cm; Wt 77.1 kg
[~2020-04-05 00:13] MED LIST changes: +ALBU2.5V5 INH; +GUAI200 PO; +Loratadine10 MG PO; +PANT40 PO; +POTCIT10 PO; +SERT100 PO
[2020-04-05 02:48] LABS: BASOPHILS ABSOLUTE AUTO 0.04 K/mm3 (0.00-0.23); BASOPHILS PERCENT AUTO 1 % (0-2); EOSINOPHILS ABSOLUTE AUTO 0.32 K/mm3 (0.00-0.68); EOSINOPHILS PERCENT AUTO 6 % (0-6); Hematocrit 34.2 % (37.0-53.0); Hemoglobin 10.9 g/dL (13.5-17.5); IMMATURE GRAN ABSOLUTE AUTO 0.01 K/mm3 (0.00-0.10); IMMATURE GRAN PERCENT AUTO 0 % (0-1); LYMPHOCYTES ABSOLUTE AUTO 1.85 K/mm3 (0.84-5.20); LYMPHOCYTES PERCENT AUTO 36 % (21-46); MONOCYTES ABSOLUTE AUTO 0.44 K/mm3 (0.16-1.47); MONOCYTES PERCENT AUTO 9 % (4-13); Mean Corpuscular HGB 29.2 pg (26.0-34.0); Mean Corpuscular HGB Conc 31.9 g/dL (31.5-36.5); Mean Corpuscular Volume 92 fL (80-100); Mean Platelet Volume 10.3 fL (9.1-12.4); NEUTROPHILS PERCENT AUTO 48 % (41-73); Platelet Count 160 K/mm3 (150-400); RDW Coefficient Variation 17.7 % (11.7-14.2); RDW Standard Deviation 58.5 fL (35.1-46.3); Red Blood Cell Count 3.73 M/mm3 (4.30-5.90); White Blood Cell Count 5.16 K/mm3 (4.00-11.30)
[2020-04-05] MEDS ORDERED: ALBU90OI INH (03:08)
[2020-04-05 03:09] LABS: Anion Gap 4 mmol/L (6-16); Blood Urea Nitrogen 25 mg/dL (8-24); Bun/Creatinine Ratio 28.3 (12.0-20.0); CO2, Blood 28 mmol/L (21-32); Calcium, Blood 8.5 mg/dL (8.5-10.1); Chloride, Blood 109 mmol/L (98-108); Creatinine, Blood 0.88 mg/dL (0.60-1.20); Glomerular Filtration Rate >60 (60-); Glucose, Blood 84 mg/dL (70-99); Potassium, Blood 3.8 mmol/L (3.5-5.5); Sodium, Blood 141 mmol/L (136-145)
[2020-04-05] MEDS ORDERED: ATOR40TA PO (03:09)
[2020-04-05] MEDS ORDERED: ASCO500 PO (03:09)
[2020-04-05] MEDS ORDERED: FERROUS GLUCON324 MG PO (03:10)
[2020-04-05] MEDS ORDERED: MAXI-TUSS G LI473 ML PO (03:12)
[2020-04-05] MEDS ORDERED: GABA300 PO (03:13)
[2020-04-05] MEDS ORDERED: LEVSOD75 PO (03:14)
[2020-04-05] MEDS ORDERED: MINIPRESS2 M1 PO (03:15)
[2020-04-05] MEDS ORDERED: SENN187 PO (03:16)
== END 2020-04-05 04:26 | disposition home or self-care (01) ==
LOC: ER 00:13
PROVIDERS: Student in an Organized Health Care Education/Training Program
DX: R05 Cough (principal); R06.02 Shortness of breath; E03.9 Hypothyroidism, unspecified; J44.9 Chronic obstructive pulmonary disease, unspecified; I11.0 Hypertensive heart disease with heart failure; I50.9 Heart failure, unspecified; Z88.8 Allergy status to other drugs, medicaments and biological substances; Z86.73 Personal history of transient ischemic attack (TIA), and cerebral infarction without residual deficits; Z79.899 Other long term (current) drug therapy; Z87.891 Personal history of nicotine dependence
CPT/HCPCS: 36415; 71045; 80048; 85025; 93005; 93010; 99283-25

== ENCOUNTER 2020-10-01 12:28 | Inpatient (IN) | payer OTHER ==
[~2020-10-01] VITALS: Ht 172.7 cm; Wt 85.8 kg
[~2020-10-01 12:28] MED LIST changes: +ASCO500 PO; +FERROUS GLUCON324 MG PO; +GABA300 PO; +LEVSOD75 PO; +MAXI-TUSS G LI473 ML PO; +MINIPRESS2 M1 PO; +SENN187 PO
[2020-10-01 12:50] LABS: BASOPHILS ABSOLUTE AUTO 0.03 K/mm3 (0.00-0.23); BASOPHILS PERCENT AUTO 0 % (0-2); EOSINOPHILS PERCENT AUTO 0 % (0-6); Hematocrit 42.7 % (37.0-53.0); Hemoglobin 14.2 g/dL (13.5-17.5); IMMATURE GRAN ABSOLUTE AUTO 0.01 K/mm3 (0.00-0.10); IMMATURE GRAN PERCENT AUTO 0 % (0-1); LYMPHOCYTES ABSOLUTE AUTO 0.49 K/mm3 (0.84-5.20); LYMPHOCYTES PERCENT AUTO 7 % (21-46); MONOCYTES ABSOLUTE AUTO 0.26 K/mm3 (0.16-1.47); MONOCYTES PERCENT AUTO 4 % (4-13); Mean Corpuscular HGB 32.3 pg (26.0-34.0); Mean Corpuscular HGB Conc 33.3 g/dL (31.5-36.5); Mean Corpuscular Volume 97 fL (80-100); Mean Platelet Volume 10.6 fL (9.1-12.4); NEUTROPHILS ABSOLUTE AUTO 6.56 K/mm3 (1.96-9.15); NEUTROPHILS PERCENT AUTO 89 % (41-73); Platelet Count 173 K/mm3 (150-400); RDW Coefficient Variation 11.9 % (11.7-14.2); RDW Standard Deviation 43.1 fL (35.1-46.3); Red Blood Cell Count 4.39 M/mm3 (4.30-5.90); White Blood Cell Count 7.35 K/mm3 (4.00-11.30)
[2020-10-01 12:54] LABS: PCO2 Arterial 49.2 mmHg (35-45); PO2 Arterial 56.3 mmHg (80-100); pH Blood Arterial 7.35 (7.35-7.45)
[2020-10-01 13:09] LABS: Albumin, Blood 3.4 g/dL (3.4-5.0); Albumin/Globulin Ratio 0.9 (0.8-1.8); Bilirubin, Total 0.6 mg/dL (0.1-1.0); Bun/Creatinine Ratio 21.1 (12.0-20.0); Calcium, Blood 9.1 mg/dL (8.5-10.1); Creatinine, Blood 1.28 mg/dL (0.60-1.20); Globulin, Blood 3.6 g/dL (2.2-4.0); Potassium, Blood 3.8 mmol/L (3.5-5.5); Troponin I 0.034 ng/mL (0.000-0.040)
[2020-10-01 13:56] LABS: Influenza A, PCR NEGATIVE (NEGATIVE); Influenza B, PCR NEGATIVE (NEGATIVE); Resp Syncytial Virus, PCR NEGATIVE (NEGATIVE); SARS-Cov-2 (COVID-19) PCR, MMC NEGATIVE (NEGATIVE)
--- NOTE | 2020-10-01 19:14 | NUR ---
PATIENT ARRIVED TO UNIT FROM ED VIA GURNEY. BIPAP IN PLACE, O2 SATS LOW 90S. PUPILS RESPONSIVE. PATIENT AT ONE POINT WAS ABLE TO COMMUNICATE THAT HE FELT NAUSEAS, MEDICATED PER EMAR. ABLE TO STATE THAT HE IS CURRENTLY IN THE HOSPITAL. NO SIGNS OF ACUTE DISTRESS, CALL LIGHT WITHIN REACH.
--- NOTE | 2020-10-01 20:25 | NUR ---
UPDATE DR MÉNDEZ NOTIFIED THAT PATIENT HAS BEEN NAUSOUS, ORDER FOR PREET RECEIVED. DR MÉNDEZ ALSO AWARE OF ALL OF PATIENT'S 2100 PO MEDICATIONS AND HE IS AWARE THAT PATIENT IS UANBLE TO TAKE THEM DUE TO HIS CURRENT MENTATION. DR MÉNDEZ STATED IT WAS FINE TO HOLD ALL PO MEDS TONIGHT.
[2020-10-02 05:00] LABS: Hematocrit 39.6 % (37.0-53.0); Hemoglobin 13.2 g/dL (13.5-17.5); Mean Corpuscular HGB 32.8 pg (26.0-34.0); Mean Corpuscular HGB Conc 33.3 g/dL (31.5-36.5); Mean Corpuscular Volume 98 fL (80-100); Mean Platelet Volume 11.1 fL (9.1-12.4); Platelet Count 143 K/mm3 (150-400); RDW Coefficient Variation 12.2 % (11.7-14.2); RDW Standard Deviation 44.3 fL (35.1-46.3); Red Blood Cell Count 4.03 M/mm3 (4.30-5.90); White Blood Cell Count 11.61 K/mm3 (4.00-11.30)
[2020-10-02 05:27] LABS: Albumin, Blood 2.9 g/dL (3.4-5.0); Albumin/Globulin Ratio 0.7 (0.8-1.8); Bun/Creatinine Ratio 25.4 (12.0-20.0); Creatinine, Blood 1.42 mg/dL (0.60-1.20); Globulin, Blood 3.9 g/dL (2.2-4.0); Potassium, Blood 3.8 mmol/L (3.5-5.5); Total Protein, Blood 6.8 g/dL (6.4-8.2)
[2020-10-02 05:44] LABS: BAND PERCENT MAN 27 % (0-8); BASOPHILS PERCENT MAN 0 % (0-2); EOSINOPHILS PERCENT MAN 0 % (0-6); LYMPHOCYTES ABSOLUTE MAN 0.92 K/mm3 (0.84-5.20); LYMPHOCYTES PERCENT MAN 8 % (21-46); METAMYELOCYTE ABSOLUTE MAN 0.11 K/mm3 (0.00-0.00); METAMYELOCYTE PERCENT MAN 1 % (0-0); MONOCYTES ABSOLUTE MAN 0.58 K/mm3 (0.16-1.47); MONOCYTES PERCENT MAN 5 % (4-13); NEUTROPHILS ABSOLUTE MAN 9.98 K/mm3 (1.96-9.15); SEG NEUTROPHILS PERCENT MAN 59 % (41-73); TOTAL CELLS COUNTED 100
--- NOTE | 2020-10-02 06:37 | NUR ---
SHIFT SUMMARY PATIENT RESPONSIVE ONLY TO PRESSURE AT BEGINNING OF SHIFT, NOT OPENING EYES AND MOANING ONLY. AROUND 0400 PATIENT LETHARGIC BUT ABLE TO OPEN EYES AND ANSWER QUESTIONS APPROPRIATELY. 02 SATS >90% ON BIPAP 70%FIO2. PATIENT HAD NOT URINATED, BLADDER SCAN DONE 400MLS, HOSPITALIST CALLED, STRAIGHT CATH DONE, ONE TIME ORDER, 500ML OUTPUT. TURNED Q2 HOURS. CALL LIGHT IN REACH.
--- NOTE | 2020-10-02 17:10 | NUR ---
SHIFT SUMMARY NO ACUTE EVENTS THIS SHIFT, VSS. PATIENT ON BIPAP/HIGH FLOW NASAL CANNULA 9-13 LPM THIS SHIFT, MAINTAINING O2 SATS IN LOW 90S, WILL DESAT TO LOW 80S WHEN BIPAP REMOVED. SPEECH THERAPY WORKED WITH PATIENT TODAY, ADVANCED TO PUREE DIET WITH SUPERVISION AND CUES FOR SMALL BITES/SIPS. PATIENT IS ORIENTED TO SELF, FAMILY AND SURROUNDINGS, STATES THAT HE UNDERSTANDS HE IS IN THE HOSPITAL NOW, BUT DOES NOT REMEMBER EVENTS LEADING UP TO ADMISSION. PATIENT STATES THAT HE DOESN'T REMEMBER ANYTHING OVER THE PAST 24 HOURS UNTIL WAKING UP THIS DAY SHIFT. THIS MORNING PATIENT ASKED WHERE HE WAS AND WAS ABLE TO PROCESS EXPLANATIONS OF CURRENT SITUATION FROM STAFF. LACTIC ACID DOWN TO 1.5 THIS SHIFT, POS. BLOOD CULTURES AND VANCO STARTED THIS SHIFT.
--- NOTE | 2020-10-03 05:44 | NUR ---
SHIFT SUMMARY NO ACUTE CHANGES THIS SHIFT. PT ALERT, ORIENTED TO SELF, SURROUNDINGS, FOLLOWS DIRECTIONS. HARD OF HEARING, OFTEN DIFFICULT TO UNDERSTAND. SP02>90% ON BIPAP, FI02 75% HALF THE SHIFT. PT C/O OF NOSE HURTING FROM MASK, SO TOOK BREAKS W/ HUMIDIFIED HIGHFLO NC @ 14L. TELEMETRY READS NSR, HR 60'S. PT C/O OF BACK PAIN, 05/02. MEDICATED W/ TYLENOL PER EMAR. PT WAS Q2H REPOSITIONED. PT TOOK MEDS ONE AT A TIME IN APPLESAUCE WITH NO PROBLEM. PT SLEPT ON AND OFF T/O NIGHT. CALL LIGHT IN REACH. WILL GIVE REPORT TO ONCOMING SHIFT.
--- NOTE | 2020-10-03 16:44 | NUR ---
SHIFT SUMMARY PATIENT ORIENTED TO SELF AND SITUATION, UNDERSTANDS HE IS IN THE HOSPITAL AT THIS TIME. HOWEVER PATIENT CONTINUES TO STATE THAT HE WANTS TO LEAVE AND THAT HIS SON IS GOING TO PICK HIM UP. PATIENT CONTINUES TO BE REASSURED BY STAFF THAT IT IS NOT YET TIME FOR DISCHARGE AND THAT HE NEEDS CONTINUED CARE AND IV ABX. THIS MORNING PATIENT BECAME MORE AND MORE ANXIOUS AND AGITATED, PULLING OFF BIPAP AND HITTING STAFF DURING BED BATH. DR. MARAVILLA NOTIFIED, ORDERS FOR IV ATIVAN GIVEN. PATIENT SETTLED DOWN AFTER ABOUT AN HOUR AFTER ATIVAN ADMINISTERED, HOWEVER STILL AWAKE AND ABLE TO CONVERSE, NO LONGER ATTEMPTING TO CRAWL OUT OF BED EVERY 10 MINUTES. PATIENT HYPERTENSIVE THIS SHIFT, WITH HIGH OF 181/95. DR. MARAVILLA NOTIFIED, PRN HYDRALAZINE ORDERED, BP IMPROVED TO 160s/80s. PATIENT WENT BETWEEN HIGH FLOW NASAL CANNULA AT 13 LPM AND BIPAP TODAY. REPOSITIONED T/O SHIFT, SUPERVISED FOR MEALS.
[2020-10-04 05:17] LABS: BASOPHILS ABSOLUTE AUTO 0.03 K/mm3 (0.00-0.23); BASOPHILS PERCENT AUTO 0 % (0-2); EOSINOPHILS ABSOLUTE AUTO 0.03 K/mm3 (0.00-0.68); EOSINOPHILS PERCENT AUTO 0 % (0-6); Hematocrit 33.4 % (37.0-53.0); Hemoglobin 11.2 g/dL (13.5-17.5); IMMATURE GRAN ABSOLUTE AUTO 0.04 K/mm3 (0.00-0.10); IMMATURE GRAN PERCENT AUTO 1 % (0-1); LYMPHOCYTES ABSOLUTE AUTO 0.85 K/mm3 (0.84-5.20); LYMPHOCYTES PERCENT AUTO 10 % (21-46); MONOCYTES PERCENT AUTO 5 % (4-13); Mean Corpuscular HGB 32.7 pg (26.0-34.0); Mean Corpuscular HGB Conc 33.5 g/dL (31.5-36.5); Mean Corpuscular Volume 98 fL (80-100); Mean Platelet Volume 11.3 fL (9.1-12.4); NEUTROPHILS PERCENT AUTO 84 % (41-73); Platelet Count 115 K/mm3 (150-400); RDW Coefficient Variation 12.3 % (11.7-14.2); RDW Standard Deviation 44.2 fL (35.1-46.3); Red Blood Cell Count 3.42 M/mm3 (4.30-5.90); White Blood Cell Count 8.25 K/mm3 (4.00-11.30)
--- NOTE | 2020-10-04 05:22 | NUR ---
SHIFT SUMMARY NO ACUTE CHANGES THIS SHIFT. PT ALERT, ORIENTED TO SELF, PERSON, FAMILY. FOLLOWS DIRECTIONS. SP02>90% ON 13L HUMIDIFIED HIGHFLO NC, OR BIPAP AT 60% FI02. TELEMETRY READS SR W/ PACS. PT HAD ELEVATED BP THIS SHIFT, MEDICATED W/ HYDRALAZINE PER EMAR X2 THIS SHIFT. PT DENIED PAIN. PT INCONTINENT OF BOWEL, HAD ONE SOFT, UNFORMED BM THIS SHIFT. C/D ATTENDS AND FULL LINEN CHANGE. PT USED URINAL AT BEDSIDE. ABX INFUSED PER EMAR. PT TOOK MEDS 1 AT A TIME IN APPLESAUCE. PT REPOSITIONED Q2H. PT SLEPT OFF AND ON T/O NIGHT. CALL LIGHT IN REACH. WILL GIVE REPORT TO ONCOMING NURSE.
[2020-10-04 05:39] LABS: Alanine Aminotransfer (ALT/SGP 16 U/L (12-78); Albumin, Blood 2.7 g/dL (3.4-5.0); Albumin/Globulin Ratio 0.7 (0.8-1.8); Alk Phos 67 U/L (50-136); Anion Gap 6 mmol/L (6-16); Aspartate Aminotrans (AST/SGOT 15 U/L (12-37); Blood Urea Nitrogen 25 mg/dL (8-24); Bun/Creatinine Ratio 28.5 (12.0-20.0); CO2, Blood 26 mmol/L (21-32); Calcium, Blood 9.5 mg/dL (8.5-10.1); Chloride, Blood 115 mmol/L (98-108); Creatinine, Blood 0.88 mg/dL (0.60-1.20); Globulin, Blood 3.9 g/dL (2.2-4.0); Glomerular Filtration Rate >60 (60-); Glucose, Blood 110 mg/dL (70-99); Potassium, Blood 3.2 mmol/L (3.5-5.5); Sodium, Blood 147 mmol/L (136-145); Total Protein, Blood 6.6 g/dL (6.4-8.2)
--- NOTE | 2020-10-04 18:43 | NUR ---
PT SUMMARY: NO ACUTE CHANGE FOR THE SHIFT, VITALS HRR SR 70-90'S, BP SYSTOLIC 170'S, SATS ABOVE 90% ON 10L OF O2 VIA HI ELLE, AFEBRILE. PT REMAINED ALERT WITH SOME CONFUSION, SLEPT MOST OF THE SHIFT, WAS ABLE TO WORK WITH PHYSICAL THERAPY UNABLE TO STAND PT RESISTIVE/MUSCLE STIFFS WHEN TRYING TO STAND UP PER PHYSICAL THERAPIST. NO ISSUES WITH SWALLOWING TOLERATED MEDS WHOLE WITH APPLESAUCE POOR APPETITE, OFFERED ENSURE WITH DINNER PT WAS ABLE TO FINISH A BOTTLE, INCONTINENT OF BOTH BOWEL AND BLADDER. PALLIATIVE CARE TO POSSIBLY DISCUSS WITH SON TOMORROW ABOUT PLAN OF CARE WITH THE PT. NO OTHER ISSUES ENCOUNTERED. WILL REPORT TO ONCOMING NURSE
--- NOTE | 2020-10-05 04:53 | NUR ---
SHIFT SUMMARY NO ACUTE CHANGES THIS SHIFT. PT ALERT, SOME CONFUSION. PLEASANT AND FOLLOWS DIRECTIONS. SP02>90% ON 10L HUMIDIFIED HIGHFLO NC, OR BIPAP AT 60% FI02. PT CONVERTED FROM SR TO AFIB AT BEGINNING OF SHIFT, HR 90'S-100'S. PT DENIED PAIN. PT INCONTINENT OF BOWEL, C/D ATTENDS AND FULL LINEN CHANGE X3. PT USED URINAL AT BEDSIDE. ABX INFUSED PER EMAR. PT TOOK MEDS 1 AT A TIME IN APPLESAUCE. PT REPOSITIONED Q2H. PT SLEPT OFF AND ON T/O NIGHT. CALL LIGHT IN REACH. WILL GIVE REPORT TO ONCOMING NURSE.
[2020-10-05 09:20] LABS: BASOPHILS ABSOLUTE AUTO 0.03 K/mm3 (0.00-0.23); BASOPHILS PERCENT AUTO 1 % (0-2); EOSINOPHILS ABSOLUTE AUTO 0.04 K/mm3 (0.00-0.68); EOSINOPHILS PERCENT AUTO 1 % (0-6); Hemoglobin 11.8 g/dL (13.5-17.5); IMMATURE GRAN ABSOLUTE AUTO 0.04 K/mm3 (0.00-0.10); IMMATURE GRAN PERCENT AUTO 1 % (0-1); LYMPHOCYTES ABSOLUTE AUTO 0.92 K/mm3 (0.84-5.20); LYMPHOCYTES PERCENT AUTO 16 % (21-46); MONOCYTES ABSOLUTE AUTO 0.38 K/mm3 (0.16-1.47); MONOCYTES PERCENT AUTO 7 % (4-13); Mean Corpuscular HGB 32.6 pg (26.0-34.0); Mean Corpuscular HGB Conc 33.7 g/dL (31.5-36.5); Mean Corpuscular Volume 97 fL (80-100); Mean Platelet Volume 11.1 fL (9.1-12.4); NEUTROPHILS ABSOLUTE AUTO 4.37 K/mm3 (1.96-9.15); NEUTROPHILS PERCENT AUTO 76 % (41-73); Platelet Count 139 K/mm3 (150-400); RDW Coefficient Variation 12.2 % (11.7-14.2); RDW Standard Deviation 43.8 fL (35.1-46.3); Red Blood Cell Count 3.62 M/mm3 (4.30-5.90); White Blood Cell Count 5.78 K/mm3 (4.00-11.30)
[2020-10-05 09:30] LABS: Albumin, Blood 2.6 g/dL (3.4-5.0); Anion Gap 5 mmol/L (6-16); Blood Urea Nitrogen 24 mg/dL (8-24); Bun/Creatinine Ratio 28.1 (12.0-20.0); CO2, Blood 28 mmol/L (21-32); Calcium, Blood 9.2 mg/dL (8.5-10.1); Chloride, Blood 116 mmol/L (98-108); Creatinine, Blood 0.85 mg/dL (0.60-1.20); Glomerular Filtration Rate >60 (60-); Glucose, Blood 182 mg/dL (70-99); Phosphorus, Blood 1.4 mg/dL (2.5-4.9); Potassium, Blood 3.1 mmol/L (3.5-5.5); Sodium, Blood 149 mmol/L (136-145)
--- NOTE | 2020-10-05 18:34 | NUR ---
PT SUMMARY: PT REMAINS CONFUSED AND FORGETFUL AT TIMES, VITALS HRR AFIB 80-100'S, BP SYSTOLIC 130-170'S, SATS ABOVE 90% ON 8L OF O2, AFEBRILE. PT GOT AGITATED THIS MORNING AFTER WORKING WITH THERAPY WAS SOMEWHAT COMBATIVE, YELLS OUT FOR SON'S NAME REFUSES TO GET ROLLED AND TURNED FOR LINEN CHANGE SINCE PT WAS SOILED WITH BOTH BOWEL AND URINE. PT WAS REDIRECTED MULTIPLE TIMES. SON CAME IN TO VISIT AND DISCUSS PLAN WITH PALLIATIVE CARE NURSE, WILLING TO TAKE PT HOME WITH HOME HOSPICE CARE, SON STATED PT WAS AT SNF BEFORE DIDNT LIKE TO BE FORCED ON DOING THERAPY SESSIONS AND GETS AGITATED, NO PLANS ON GOING TO SNF AGAIN THIS TIME PER SON, SON WOULD LIKE TO ATLEAST HAVE PT RECEIVED TX FOR PNA. NO OTHER ISSUES ENCOUNTERED FOR THE SHIFT, PT TOLERATING DIET. PT WAS STARTED ON D5W WITH 1/2 NS AND K SUPPLEMENT RUNNING AT 75MLS/HR. PT TURNED AND REPOSTIONED IN BED CALL LIGHTS WITHIN REACH. WILL REPORT TO ONCOMING SHIFT
--- NOTE | 2020-10-05 19:40 | NUR ---
Pt confussed and relying his thoughts to son. His son satates his confussion is getting worse. Son states pt has been on home health and hospice. Son states he is bipolar and between caring for his father and his needs he could not take that many strangers in his home. Son wants him to recieve treatment for his pneumonia and will take him [facility]. updated hospitalist and career development consultant.
[2020-10-06 04:17] LABS: Albumin, Blood 2.6 g/dL (3.4-5.0); Anion Gap 5 mmol/L (6-16); Blood Urea Nitrogen 24 mg/dL (8-24); Bun/Creatinine Ratio 28.8 (12.0-20.0); CO2, Blood 27 mmol/L (21-32); Calcium, Blood 9.2 mg/dL (8.5-10.1); Chloride, Blood 117 mmol/L (98-108); Creatinine, Blood 0.83 mg/dL (0.60-1.20); Glomerular Filtration Rate >60 (60-); Glucose, Blood 133 mg/dL (70-99); Magnesium, Blood 2.1 mg/dL (1.6-2.4); Phosphorus, Blood 1.7 mg/dL (2.5-4.9); Potassium, Blood 3.4 mmol/L (3.5-5.5); Sodium, Blood 149 mmol/L (136-145)
--- NOTE | 2020-10-06 18:09 | NUR ---
PT SUMMARY: PT STATUS CHANGE TO MEDICAL WITH NO TELE. PT IS NOW ON 6L OF O2 VIA NASAL CANNULA SATS ABOVE 92%, SOB/ WITH EXERTION AND WHEEZING BREATHING TX PER RT. PT WAS EVALUATED TODAY PER ST KEPT NPO FOR NOW PT HAS BEEN COUGHING SINCE THIS AM WITH THIN LIQUIDS POSS. ASPIRATION WILL RE-EVAL IN AM. SUCTION PRN AT BEDSIDE. PT WAS ABLE TO PARTICIPATE WITH PT/OT PT ABLE TO TRANSFER TO BSC/CHAIR 2PA VIA GAITBELT AND WALKER. SON AT BEDSIDE DURING VISITING HOURS. NO OTHER ISSUES ENCOUNTERED FOR THE SHIFT, WILL REPORT TO ONCOMING SHIFT
[2020-10-07 05:07] LABS: Albumin, Blood 2.6 g/dL (3.4-5.0); Anion Gap 6 mmol/L (6-16); Blood Urea Nitrogen 17 mg/dL (8-24); Bun/Creatinine Ratio 22.4 (12.0-20.0); CO2, Blood 26 mmol/L (21-32); Calcium, Blood 9.4 mg/dL (8.5-10.1); Chloride, Blood 117 mmol/L (98-108); Creatinine, Blood 0.76 mg/dL (0.60-1.20); Glomerular Filtration Rate >60 (60-); Glucose, Blood 112 mg/dL (70-99); Potassium, Blood 3.5 mmol/L (3.5-5.5); Sodium, Blood 149 mmol/L (136-145)
--- NOTE | 2020-10-07 05:27 | NUR ---
SHIFT SUMMARY PATIENT IS ALERT AND ORIENTED TO SELF AND FOLLOWING DIRECTIONS. 2 PERSON ASSIST WITH REPOSITIONING Q2 HOURS. PATIENT IS INCONTINENT BUT USES URINAL AT TIMES, PATIENT SLEPT MOST THE NIGHT. WORE BIPAP FOR A COUPLE HOURS. NOW ON 4L NC SATS >90%. PROVIDED SUCTIONING AND ORAL CARE THROUGHOUT THE NIGHT. MEDICATED FOR HIGH BLOOD PRESSURE PER EMAR. CALL LIGHT IN REACH, BED IN LOW POSITION, BED ALARM ON.
--- NOTE | 2020-10-07 18:08 | NUR ---
SHIFT SUMMARY PT ALERT, ORIENTED TO SLEF, FAMILY AND FOLLOWING DIRECTIONS. PT ON BIPAP THIS AM, SPO2 >90%; PLACED ON NC THIS AFTERNOON AT 4L O2 VIA NC. PATIENTS SON STATES THAT PT IS ON RA AT BASELINE, HOWEVER HAS O2 AT HOME FOR "WHEN HE NEEDS IT" AND "HAS NOT WORN IT IN A WHILE." PT DENIES PAIN, CHEST PAIN, NAUSEA AND DIZZINESS. REPOSITONED Q2. ORAL CARE q4. ELEVATED BP NOTED, NOTIFIED DR SIERRA, NEW ORDERS ENTERED. OTHER VSS. STRICT NPO PER SPEECH THERAPY. NO OTHER ACUTE CHANGES NOTED DURING SHIFT. WILL CONTINUE TO MONITOR UNTIL REPORT GIVEN TO ONCOMING RN.
--- NOTE | 2020-10-08 05:00 | NUR ---
SHIFT SUMMARY PT RESTED WELL THROUGH NIGHT. ALERT AND ORIENTED TO SELF. PLEASANT MAN, ABLE TO MAKE NEEDS KNOWN. SATS >90% ON 2-3LNC, BUT DID WEAR BIPAP FOR 1/3 OF EVENING. TELE - AFIB LOW 100'S. BP REMAINED ELEVATED THROUGHOUT NIGHT - SEE EMAR FOR MED ADMINISTRATION. BP IMRPOVED NIGHT WENT ON. Q2 TURNS FOR PRESSURE INJURY PREVENTION. PT IS CONTINENT AND INCONTINENT OF URINE. FREQUENT LOOSE, GREEN, INCONTINENT BOWEL MOVEMENTS. ALL OTHER VITALS STABLE. NO C/O PAIN. CALL LIGHT WITHIN REACH, BED IN LOWEST POSITION. BED ALARM ON, WILL CONTINUE TO MONITOR.
--- NOTE | 2020-10-08 08:00 | NUR ---
pt laying in bed awake, bed alarm on as pt attempts to get oob at times, he is confused, but follows commands, lungs are dim in bases, at time audible wheezing, currently on 4 liters 02 via n/c, resp even and unlabored, occ nonprod cough noted, hrirr, tele in place running afib per monitor, see strip, no edema noted, ppp+2, cap refill <3sec, vs stable, afebrile, iv site to rfa site is clear and patent, btx4, abd flat soft nontender, voids via urinal at times, and is incont of urine and stool, turner hairston, call light in reach.
[2020-10-08] MEDS ORDERED: ACET325 PO ×2 (15:39)
[2020-10-08] MEDS ORDERED: DILTIAZEM 24HR180 M3 PO ×2 (15:43)
--- NOTE | 2020-10-08 16:41 | NUR ---
PT HAS BEEN DISCHARGED TO HOME WITH HIS SON, WENT OVER PAPERWORK WITH HIS SON, HE VERBALIZED UNDERSTANDING, IV REMOVED INTACT, PT BELONGINGS WERE TAKEN BY SON, PT LEFT VIA WHEELCHAIR WITH PRICING INTERN IN ATTENDENCE.
== END 2020-10-08 16:30 | disposition home or self-care (01) | DRG 177 ==
LOC: ER 12:28 → PCU 18:13
PROVIDERS: Emergency Medicine; Internal Medicine; ADMIT Internal Medicine
PROC: 5A09357 Assistance with Respiratory Ventilation, Less than 24 Consecutive Hours, Continuous Positive Airway Pressure (ICD-10-PCS; principal; 2020-10-01)
DX: J69.0 Pneumonitis due to inhalation of food and vomit (principal); J96.01 Acute respiratory failure with hypoxia; G96.08 Other cranial cerebrospinal fluid leak; N17.9 Acute kidney failure, unspecified; R78.81 Bacteremia; E87.2 Acidosis; G93.49 Other encephalopathy; E87.6 Hypokalemia; Z86.73 Personal history of transient ischemic attack (TIA), and cerebral infarction without residual deficits; Z66 Do not resuscitate; J44.9 Chronic obstructive pulmonary disease, unspecified; E03.9 Hypothyroidism, unspecified; Z79.899 Other long term (current) drug therapy; Z20.822 Contact with and (suspected) exposure to COVID-19; I10 Essential (primary) hypertension
CPT/HCPCS: 0241U; 31720; 36415; 36600; 70450; 71045; 80053; 80069; 82803; 83605; 83735; 83880; 84484; 85025; 87040; 92526; 92610; 93005; 93010; 94640; 94660; 94762; 96365; 96367; 96368; 96375; 97112; 97163; 97166; 97530; 97535; 99285-25; A9270; J0360; J0456; J0696; J1644; J2060; J2405; J2543; J3370; J7042; J7050

== ENCOUNTER 2020-10-16 12:55 | Emergency (ER) | payer OTHER ==
[~2020-10-16] VITALS: Ht 182.9 cm; Wt 97.5 kg
[~2020-10-16 12:55] MED LIST changes: +ACET325 PO; +DILTIAZEM 24HR180 M3 PO
[2020-10-16 13:26] LABS: BASOPHILS ABSOLUTE AUTO 0.04 K/mm3 (0.00-0.23); BASOPHILS PERCENT AUTO 1 % (0-2); EOSINOPHILS ABSOLUTE AUTO 0.19 K/mm3 (0.00-0.68); EOSINOPHILS PERCENT AUTO 3 % (0-6); Hematocrit 30.8 % (37.0-53.0); Hemoglobin 10.1 g/dL (13.5-17.5); IMMATURE GRAN ABSOLUTE AUTO 0.02 K/mm3 (0.00-0.10); IMMATURE GRAN PERCENT AUTO 0 % (0-1); LYMPHOCYTES ABSOLUTE AUTO 0.97 K/mm3 (0.84-5.20); LYMPHOCYTES PERCENT AUTO 17 % (21-46); MONOCYTES ABSOLUTE AUTO 0.65 K/mm3 (0.16-1.47); MONOCYTES PERCENT AUTO 11 % (4-13); Mean Corpuscular HGB 32.6 pg (26.0-34.0); Mean Corpuscular HGB Conc 32.8 g/dL (31.5-36.5); Mean Corpuscular Volume 99 fL (80-100); Mean Platelet Volume 10.2 fL (9.1-12.4); NEUTROPHILS ABSOLUTE AUTO 3.96 K/mm3 (1.96-9.15); NEUTROPHILS PERCENT AUTO 68 % (41-73); Platelet Count 290 K/mm3 (150-400); RDW Coefficient Variation 12.4 % (11.7-14.2); RDW Standard Deviation 44.5 fL (35.1-46.3); White Blood Cell Count 5.83 K/mm3 (4.00-11.30)
[2020-10-16 13:41] LABS: Alanine Aminotransfer (ALT/SGP 20 U/L (12-78); Albumin, Blood 2.5 g/dL (3.4-5.0); Albumin/Globulin Ratio 0.6 (0.8-1.8); Alk Phos 88 U/L (50-136); Anion Gap 2 mmol/L (6-16); Aspartate Aminotrans (AST/SGOT 17 U/L (12-37); Bilirubin, Total 0.6 mg/dL (0.1-1.0); Blood Urea Nitrogen 13 mg/dL (8-24); Bun/Creatinine Ratio 13.5 (12.0-20.0); CO2, Blood 32 mmol/L (21-32); Calcium, Blood 8.6 mg/dL (8.5-10.1); Chloride, Blood 105 mmol/L (98-108); Creatinine, Blood 0.96 mg/dL (0.60-1.20); Glomerular Filtration Rate >60 (60-); Glucose, Blood 98 mg/dL (70-99); Potassium, Blood 4.5 mmol/L (3.5-5.5); Sodium, Blood 139 mmol/L (136-145); Total Protein, Blood 6.5 g/dL (6.4-8.2)
[2020-10-16] MEDS ORDERED: PANT40 PO (14:11)
[2020-10-16] MEDS ORDERED: Percocet 5-3251 EACH PO (16:11)
[2020-10-18] MEDS ORDERED: OXYCODONE-ACET1 EAC3 PO (14:12)
[2020-10-20] MEDS ORDERED: ATROPINE SULFATE5 ML SL (08:46)
[2020-10-20] MEDS ORDERED: MORP20L SL (08:47)
[2020-10-20] MEDS ORDERED: Ativan1 MG PO (08:47)
== END 2020-10-16 17:40 | disposition home or self-care (01) ==
LOC: ER 12:55
PROVIDERS: Emergency Medicine
DX: S42.302A Unspecified fracture of shaft of humerus, left arm, initial encounter for closed fracture (principal); I11.0 Hypertensive heart disease with heart failure; I50.9 Heart failure, unspecified; J44.9 Chronic obstructive pulmonary disease, unspecified; Z79.899 Other long term (current) drug therapy; Z86.73 Personal history of transient ischemic attack (TIA), and cerebral infarction without residual deficits; W05.0XXA Fall from non-moving wheelchair, initial encounter
CPT/HCPCS: 29105; 71046; 73060; 80053; 85025; 93005; 93010; 99285-25

== ENCOUNTER 2020-10-18 12:51 | Observation (INO) | payer OTHER ==
[~2020-10-18] VITALS: Ht 182.9 cm; Wt 81.7 kg
[2020-10-18] MEDS ORDERED: OXYCODONE-ACET1 EAC3 PO ×2 (14:12)
--- NOTE | 2020-10-18 14:38 | NUR ---
PAL CARE - COMFORT CARE VISIT to ER rm#[id number]. Pt awake, attempted to speak to me but it is mostly unintelligible. Pt has left shoulder and arm dressed and shalini wrapped. He is grimacing and groaning at times, especially with change of position with assist of three staff, including me. Found pt incontinent and soaked in urine and shivering. Pt alone in room when I arrived. RN states family left saying, "they couldn't deal with this." Pt changed into clean gown and linens and covered with heated blanket per ER staff and myself. Pt being admitted to medical floor for comfort care. Discussed medications for comfort with RN who will administer morphine per eMAR. Order for mendoza cath added to comfort care orders due to pt's incontinence and pain with changing of linen and attends just now. Will reassess in am for s/s management and comfort care needs. Pt has been seen by Pal Care team during recent/previous admissions. They were in communicaiton with pt's son at that time also. Those notes were reviewed. Home management has been an ongoing challenge. Pt has been living with son.
--- NOTE | 2020-10-18 16:30 | NUR ---
PT ADMITTED ON COMFORT CARE. UNRESPONSIVE TO STERNAL RUB AT ADMIT TO MY CARE. RESP ARE AVERAGE 14 PER MIN, APNIC PERIODS OF 5-10 SECONDS 3-4 TIMES PER MINUTE. PRESENTLY MOUTH BREATHING. ON R.A. LUNGS CLEAR, AIRWAY NOT GURGLEY. EYES CLOSED. BODY OCCATIONALLY HAS FOOT MOVEMENT TWITCH. H/R 76. FAINT HEART SOUNDS. PULSES ALL EXT. FAINT. LIGHT BRUISE HEAL OF LEFT FOOT. BRUISE NOTED ON LEFT HIP. SHOULDER ON LEFT IS IN SPLINT AND WRAPPED. PT APPEARS IN NO DISTRESS. IN ATTENDS, CHANGED AND IS CDI. LIGHT REDNESS ON LEGS IN LALO AREA. TALC POWDER APPLIED. BED IN LOW POSITION, CALL LITE IN REACH, MUSIC ON SPEAKER. BED ALARM ON FOR SAFETY
--- NOTE | 2020-10-18 17:44 | NUR ---
PT ADMITTED ON COMFORT CARE. BED IN LOW POSITION, CALL LITE IN REACH, MUSIC ON FOR COMFORT. RESP CONTINUE TO BE 12-14 / MIN WITH 5-10 SECOND PAUSES 3-4 TIMES PER MIN. NO FAMILY AT BEDSIDE. CONTINUE TO MONITOR. BED IN LOW POSITION, CALL LITE IN REACH, BED ALARM ON FOR SAFETY
--- NOTE | 2020-10-19 06:33 | NUR ---
SHIFT SUMMARY PT IS AN 85 Y/O MALE, ADMITTED FOR ACUTE RESPIRATORY FAILURE AND CURRENTLY ON COMFORT CARE. PT WAS UNRESPONSIVE FOR MOST OF THE SHIFT, WITH SLOW BREATHING AND PERIODS OF APNEA. THIS AM, PT WOKE SLIGHTLY, AND WOULD OPEN EYES TO VOICE AND ATTEMPT TO SPEAK, BUT COULD NOT ANSWER DIRECT QUESTIONS. NO S/S OF PAIN, NAUSEA OR SOB. NO ACUTE CHANGES IN PT CONDITION NOTED SINCE START OF SHIFT. WILL CONTINUE TO MONITOR AND TREAT PER EMAR UNTIL HAND OFF TO DAY SHIFT RN.
--- NOTE | 2020-10-19 16:43 | NUR ---
SHIFT SUMMARY PT RESTLESS EARLY ON IN THE SHIFT, CALLING OUT INTO HALLWAY. PT VERY CONFUSED & NOT ORIENTED AT ALL. PT MEDICATED WITH MORPHINE & ATIVAN PRN. SEE EMAR. PT NOW SLEEPING IN ROOM. APPEARS VISABLY COMFORTABLE. ATROPINE STARTED FOR SECRETIONS. ORAL CARE COMPLETED & PT TOLERATING REPOSITIONS WELL. BEDBATH COMPLETED THIS SHIFT. NPO AT THIS TIME. LITTLE URINE OUTPUT. PT SON IN TO VISIT AND UPDATED ON PLAN TO DC TO [facility] IN THE AM. CALL LIGHT IN REACH, PLAYING MUSIC.
--- NOTE | 2020-10-19 18:45 | NUR ---
Visit made to pt. No family present at this time. He appears calm, and comfortable. Resp are even, unlabored. Plan to see pt again tomorrow. No questions or concerns from the RN at this time.
--- NOTE | 2020-10-19 19:24 | NUR ---
Spiritual care note: No family present. Mr. Rowe appeared to be sleeping and comfortable. Some gurgling noted, but breaths even and relaxed. He did not respond to voice or touch. Per chart he is [employer]. Prayer provided at bedside. I will remain available to pt and family.
--- NOTE | 2020-10-19 21:52 | NUR ---
medicated PT for pain & anxiety with helpful effect. On comfort measures fall precautions. Has LT humerus fx wrapped with shalini, elevated extremity.
--- NOTE | 2020-10-20 04:58 | NUR ---
Medicated PT multiple times with roxinol 20 mg for lt ue humerus fx with heplful effect. On comfort measures & planning to dc to [facility] today at 10 am. @ max assistfor toileting or bed mobility
--- NOTE | 2020-10-20 06:07 | NUR ---
ELDERLY MALE ON COMFORT CARE BEING DC TO [facility] TODAY AT 10 AM ON HOSPICE. mEDICATED FOR PAIN LT HUMERUS FX WITH 20 MGROXINOL MULTIPLE TIMES WITH HELFUL EFFECT. ATIVAN 1 MG PO X 1 WITH RELIEF OF ANXIETY.
[2020-10-20] MEDS ORDERED: ATROPINE SULFATE5 ML SL ×2 (08:46)
[2020-10-20] MEDS ORDERED: MORP20L SL ×2 (08:47)
[2020-10-20] MEDS ORDERED: Ativan1 MG PO ×2 (08:47)
--- NOTE | 2020-10-20 08:56 | NUR ---
REPORT CALLED TO [facility] REPORT CALLED TO NADIRA PHILLIPS AT THE [facility]. JACQUELINE DENIED FURTHER QUESTIONS AT THIS TIME.
[2020-10-20 10:39] LABS: Influenza A, PCR NEGATIVE (NEGATIVE); Influenza B, PCR NEGATIVE (NEGATIVE); Resp Syncytial Virus, PCR NEGATIVE (NEGATIVE); SARS-Cov-2 (COVID-19) PCR, MMC NEGATIVE (NEGATIVE)
--- NOTE | 2020-10-20 11:17 | NUR ---
DISCHARGE PT DISCHARGED AT 1121. PT BEING TRANSPORTED BY [facility]. PT APPEARS COMFORTABLE PRIOR TO DC. NO ACUTE CHANGES IN COMFORT CARE ASSESSMENT AT THIS TIME. PT SON HERE FOR PICKUP AND TO FOLLOW PT TO [facility]. REPORT ALREADY CALLED TO NADIRA PHILLIPS AT THE [facility].
== END 2020-10-20 11:22 | disposition hospice, home (50) ==
LOC: ER 12:51 → MEDS 12:52 → PCU 12:52 → MEDS 16:28
PROVIDERS: ADMIT Internal Medicine
DX: R62.7 Adult failure to thrive (principal); G93.49 Other encephalopathy; G96.08 Other cranial cerebrospinal fluid leak; G93.5 Compression of brain; J96.01 Acute respiratory failure with hypoxia; E87.6 Hypokalemia; I13.0 Hypertensive heart and chronic kidney disease with heart failure and stage 1 through stage 4 chronic kidney disease, or unspecified chronic kidney disease; N18.30 Chronic kidney disease, stage 3 unspecified; I50.9 Heart failure, unspecified; S42.302D Unspecified fracture of shaft of humerus, left arm, subsequent encounter for fracture with routine healing; E03.9 Hypothyroidism, unspecified; J44.9 Chronic obstructive pulmonary disease, unspecified; F03.90 Unspecified dementia, unspecified severity, without behavioral disturbance, psychotic disturbance, mood disturbance, and anxiety; Z51.5 Encounter for palliative care; Z66 Do not resuscitate; Z86.73 Personal history of transient ischemic attack (TIA), and cerebral infarction without residual deficits; Z88.8 Allergy status to other drugs, medicaments and biological substances; Z20.822 Contact with and (suspected) exposure to COVID-19
CPT/HCPCS: 0241U; 96375; 99285; A9270; G0378; J2060; J2270